=== PATIENT | male | born 1955 | race Caucasian/White ===

== ENCOUNTER 2025-03-14 14:24 | Inpatient (IN) | payer OTHER, MEDICAID, MEDICARE, SELFPAY ==
[2025-03-14] VITALS (13 sets, daily range): BP systolic 100–119; BP diastolic 61–81; PULSE 83–106; RESP 17–31; TEMP 36.3–37; O2SAT 87–99; BMI 30.2; BMI 33.7
--- NOTE | 2025-03-14 14:51 | XR_ITS ---
Examination: PA lateral chest 2 views TECHNIQUE: Upright PA lateral chest 2 views Date and time: March 14, 2025 1522 hours Comparison October 13, 2020 FINDINGS: Mild to moderate CHF Mild enlargement cardiac contour Prominent vascular congestion with perihilar basilar septal edema Consider superimposed pneumonia left base IMPRESSION: Mild to moderate CHF Consider superimposed pneumonia left base
--- NOTE | 2025-03-14 14:51 | EKG_ITS ---
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
--- NOTE | 2025-03-14 14:51 | PD.EDRME ---
Rapid Medical Screening Exam RME Arrival date/time: 03/14/25 14:24 69-year-old male with history of hyperlipidemia presents to the emergency room with a chief complaint of shortness of breath, difficulty breathing, lower extremity swelling x 2 days I have greeted and performed a focused initial assessment of this patient. A comprehensive ED assessment and evaluation of the patient, analysis of all test results, and completion of the medical decision making process will be conducted by additional ED providers. Chief Complaint: Shortness of Breath/Dyspnea Time Seen by Provider: 03/14/25 14:40 Vital signs: Vital Signs Temperature 98.5 F 03/14/25 14:42 Pulse Rate 98 03/14/25 14:42 Respiratory Rate 28 H 03/14/25 14:42 Blood Pressure 100/63 03/14/25 14:42 Pulse Oximetry (%) 90 L 03/14/25 14:42 Oxygen Delivery Method Room Air 03/14/25 14:42 Vital signs reviewed by provider: Yes
[2025-03-14] MEDS: DEXAMETHASONE SOD PHOS INJ 10 MG/ML VIAL PO (14:56)
[2025-03-14] MEDS: ALBUTEROL/IPRATROPIUM (Duoneb) RT SOL 3 ML NEBU INH (15:07)
[2025-03-14 15:23] LABS: Basophils # (Auto) 0.1 Thou/mm3 (0.0-0.2); Basophils % (Auto) 1 % (0-2.5); Eosinophils # (Auto) 0.1 Thou/mm3 (0.0-0.5); Eosinophils % (Auto) 1 % (0-10); Hematocrit 30.7 % (41.0-53.0); Hemoglobin 9.7 g/dL (13.5-16.0); Immature Granulocytes % (Auto) 1 % (0-0); Immature Granulocytes Auto 0.05 Thou/mm3 (0.00-0.00); Lymphocytes # (Auto) 1.7 Thou/mm3 (1.0-4.8); Lymphocytes % (Auto) 21 % (10-50); Mean Corpuscular HGB Conc 31.6 g/dl (31.0-37.0); Mean Corpuscular Hemoglobin 25.5 pg (25.0-35.0); Mean Corpuscular Volume 81 fL (80-100); Monocytes # (Auto) 0.7 Thou/mm3 (0.0-0.8); Monocytes % (Auto) 8 % (0-12); Neutrophils # (Auto) 5.6 Thou/mm3 (1.8-7.7); Neutrophils % (Auto) 69 % (37-80); Nucleated Red Blood Cell % 0 /100 WBC (0); Platelet Count 164 Thou/mm3 (140-440); RDW Standard Deviation 50.1 fL (35.1-43.9); White Blood Count 8.1 Thou/mm3 (3.8-10.6)
[2025-03-14 15:36] LABS: B-Type Natriuretic Peptide 417 pg/mL (0-100)
[2025-03-14 15:42] LABS: Alanine Aminotransferase 24 U/L (10-49); Albumin, Serum 4.4 gm/dL (3.4-4.8); Albumin/Globulin Ratio 1.9 (1.2-2.2); Alkaline Phosphatase 86 U/L (46-116); Anion Gap 11 (7-16); Aspartate Amino Transferase 26 U/L (0-34); BUN/Creatinine Ratio 15 Ratio (12-20); Bilirubin,Total 2.2 mg/dL (0.3-1.2); Blood Urea Nitrogen 16 mg/dL (9-23); Calcium 8.8 mg/dL (8.3-10.6); Calcium (Corrected) 8.8 mg/dL (8.5-10.1); Carbon Dioxide 20.9 mMol/L (20.0-31.0); Chloride 107 mMol/L (98-107); Creatinine (Component) 1.1 mg/dL (0.6-1.3); Estimated Creatinine Clearance 80.1 mL/min (>60); Globulin 2.3 gm/dL (2.3-3.5); Glucose 155 mg/dL (74-106); Osmolality,Calculated 281 (275-295); Sodium 139 mMol/L (136-145); Total Protein 6.7 gm/dL (5.7-8.2); eGFR > 60 See Note
[2025-03-14 15:46] LABS: Troponin I 6.889 ng/mL (0.0-0.045)
[2025-03-14 15:56] LABS: Collection Type, Urine Clean Catch
[2025-03-14 16:12] LABS: Bilirubin,Urine Negative (Negative); Blood,Urine Negative (Negative); Clarity,Urine Clear (Clear/Hazy); Color,Urine Lt-Yellow (Lt Yel-Yel); Glucose, Urine 4+ (Negative); Ketones,Urine Negative (Negative); Leukocyte Esterase,Urine Negative (Negative); Nitrite,Urine Negative (Negative); Protein,Urine Negative (Neg - Trace); RBC,Urine 3 /hpf (0-3); Specific Gravity,Urine 1.025 (1.001-1.035); Squamous Epithelial Cell,Urine < 1 /hpf (0-5); WBC,Urine 1 /hpf (0-5)
--- NOTE | 2025-03-14 16:20 | XR_ITS ---
Examination: CTA chest with intravenous contrast 2-D reconstructions 3-D reconstructions, vascular Date and time of exam: March 14, 2025 1856 hours INDICATIONS: Chest pain and shortness of breath beginning 2 days ago CTDI: vol (mGy) 27.5 DLP: (mGycm) 531 Technique: Multiple axial sections of the thorax have been obtained. 3 mm slice thickness, from below the hemidiaphragms to above the apices of the lungs. Mediastinal and lung density settings have been obtained. 2-D sagittal and coronal reconstructions. 3-D angiographic renderings, 3-D volume renderings, 3D post processing, vascular maximum intensity projections obtained. Contrast administered is 100 cc Isovue 370. Intravenous Low dose protocols were performed. One or more of the following dose reduction techniques were used; automated exposure control, adjustment of the mA and/or KV according to patient size, use of iterative reconstruction technique. Findings: No thoracic aortic aneurysm and dilatation Pulmonary artery segments are not enlarged No pulmonary artery filling defects Mild/moderate enlargement cardiac contour Prominent vascular congestion Perihilar basilar edema with moderate to large right pleural effusion and a moderate left pleural effusion Liver is irregular in contour, no focal liver lesions 2 mm gallstone No pancreatic or adrenal mass No hydronephrosis IMPRESSION: Negative for pulmonary artery emboli [id number] CHF, moderate to large right pleural effusion, moderate left pleural effusion Suspect primary hepatocellular disease Cholelithiasis
--- NOTE | 2025-03-14 16:20 | PD.EDADULT ---
ED General RME/HPI General Chief complaint: Shortness of Breath/Dyspnea Stated complaint: SOB X3 DAYS Time Seen by Provider: 03/14/25 14:40 Arrival date/time: 03/14/25 14:24 RME / HPI RME / HPI narrative: 03/14/25 14:24 69-year-old male with history of hyperlipidemia presents to the emergency room with a chief complaint of shortness of breath, difficulty breathing, lower extremity swelling x 2 days I have greeted and performed a focused initial assessment of this patient. A comprehensive ED assessment and evaluation of the patient, analysis of all test results, and completion of the medical decision making process will be conducted by additional ED providers. DR. REGAN MAIN ED EVALUATION: 69 year old male presents to the Emergency Department accompanied by his with complaints of shortness of breath and bilateral leg swelling onset 3 days. Patient denies any chest pain. Denies taking water pills. PMHx: CAD, SC in 2000, x5 cardiac stents, hypercholesterolemia, and GERD. Takes a baby ASA daily. Social Hx: Former smoker. No alcohol or substance use. 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 Related Data Home Medications ?Medication ?Instructions ?Recorded ?Confirmed atorvastatin 80 mg tablet 80 mg PO QPM 10/13/20 10/13/20 omeprazole 20 mg tablet,delayed 20 mg PO QDAY 10/13/20 10/13/20 release Allergies Allergy/AdvReac Type Severity Reaction Status Date / Time cephalexin (From Keflex) Allergy Verified 03/14/25 14:28 Review of Systems Review of Systems Systems Reviewed: All systems reviewed, normal except as documented Narrative Review of Systems: GEN: No fever, no chills, no weight loss EYES: No discharge, no visual changes, no pain HEENT: No ear pain, no congestion, no sore throat PULM: + shortness of breath, no cough, no congestion CV: No chest pain, no dyspnea on exertion, no palpitations GI: No nausea, no vomiting, no diarrhea, no pain, no constipation : No frequency, no urgency and no dysuria MUSC/SKEL: + bilateral leg swelling, no back pain SKIN: No rash PSYCH: No hallucinations, no depression HEME/LYMPH: No easy bleeding or bruising tendencies NEURO: No weakness, no headache Past Medical History Past Medical History CARDIAC: Positive Hypercholesterolemia GASTROINTESTINAL: Positive Gastroesophageal Reflux Disease Social History SMOKING STATUS: Former smoker SUBSTANCE USE: does not use ALCOHOL: Never ED Exam Narrative Physical exam: GENERAL APPEARANCE: alert and oriented x 4, well-developed, well-nourished VITALS: All vitals were reviewed and the pulse ox is 87% on room air, which is hypoxic according to my interpretation. HEENT: Normocephalic, atraumatic; pupils equal, round, reactive to light; EOMI; mucous membranes pink, moist; oropharynx clear NECK: Supple LUNGS: CTABL; no wheezes, no rales, no rhonchi HEART: Regular rate, regular rhythm; normal S1, S2; no murmurs ABDOMEN: non distended; normal BS; soft, no tenderness, no guarding, no rebound; no masses, no organomegaly, no hernia BACK: no CVA tenderness EXTREMITIES: atraumatic; there is 1+ pitting edema of the right lower extremity and trace on the left lower extremity NEUROLOGIC: awake; alert and oriented x4; cranial nerves II-XII grossly intact; no focal sensory or motor deficits PSYCHIATRIC: appropriate mood and affect SKIN: warm, dry, normal color; no rashes Course Quality Measures none Orders Category Date Time Status CT Screening NOW Care 03/14/25 16:20 Active EKG (ED ONLY) *Do not use* NOW Care 03/14/25 14:[address] angio chest Stat Exams 03/14/25 16:20 Ordered EKG (ED Only) Stat Exams 03/14/25 14:51 Draft XR chest 2V Stat Exams 03/14/25 14:51 Completed B-Type Natriuretic Peptide Stat Lab 03/14/25 15:06 Completed CBC Stat Lab 03/14/25 15:06 Completed Comprehensive Metabolic Panel Stat Lab 03/14/25 15:06 Completed Magnesium Stat Lab 03/14/25 15:06 Completed Troponin I Stat Lab 03/14/25 15:06 Completed Urinalysis Stat Lab 03/14/25 15:45 Completed Albuterol/Ipratr Rt Joanna [Duoneb Rt Joanna] Med 03/14/25 14:51 Discontinued 3 ml INH X1 ONE Aspirin Chew Med 03/14/25 17:53 Discontinued 162 mg PO X1 ONE Dexamethasone Inj [Decadron Inj] Med 03/14/25 14:51 Discontinued 10 mg PO X1 ONE Vital Signs Vital signs: Vital Signs Temperature 98.5 F 03/14/25 14:42 Pulse Rate 98 03/14/25 14:42 Respiratory Rate 28 H 03/14/25 14:42 Blood Pressure 100/63 03/14/25 14:42 Pulse Oximetry (%) 90 L 03/14/25 14:42 Oxygen Delivery Method Room Air 03/14/25 14:42 Discharge Plan Prescriptions/Referrals Prescriptions/Med Rec: No Action atorvastatin 80 mg Tablet 80 mg PO QPM omeprazole 20 mg Tablet,Delayed Release (Dr/Ec) 20 mg PO QDAY Referrals: Duy Olson [Primary Care Provider] - In 1 week Patient/Caregiver Discharge Instructions Print Language: Yi MDM Narrative MDM hospital course: I, Savana Raymond am scribing for and in the presence of Dr. Regan. Clinical Information Provided by patient and spouse Medical Records Reviewed [facility] Meds/Rx Considered, not Ordered None Labs/Rad/Tests considered, not Ordered None Chronic Illness/Social Conditions Add or document further as needed: PMHx: CAD, SC in 2000, x5 cardiac stents, hypercholesterolemia, and GERD. Takes a baby ASA daily. Social Hx: Former smoker. EKG Interpretation EKG #1: Date/time of EK03/14/25 1453 hours EKG interpretation: sinus rhythm, rate 84, Q waves in V1, V2; mild ST depressions in leads 2, 3, AVF, V5 and V6 Lab Interpretation Labs: interpreted by ct Lab(s) interpretation(s): Troponin 6.889 Imaging Radiology reports / interpretation(s): Procedure(s): XR chest 2V Accession Number(s): [id number] cc: Emmanuel Epperson; Pardeep Barlow MD~ Examination: PA lateral chest 2 views TECHNIQUE: Upright PA lateral chest 2 views Date and time: March 14, 2025 1522 hours Comparison October 13, 2020 FINDINGS: Mild to moderate CHF Mild enlargement cardiac contour Prominent vascular congestion with perihilar basilar septal edema Consider superimposed pneumonia left base IMPRESSION: Mild to moderate CHF Consider superimposed pneumonia left base Dictated By: Pardeep Barlow MD Medication Administration(s) Medication Administration History Discontinued Medications Albuterol/Ipratropium (Albuterol/Ipratropium (Duoneb) Rt Joanna 3 Ml Nebu) 3 ml INH X1 ONE Stop: 03/14/25 14:52 Last Admin: 03/14/25 15:07 Dose: 3 ml Documented By: [facility] [place] Aspirin (Aspirin 81 Mg Chew) 162 mg PO X1 ONE Stop: 03/14/25 17:54 Dexamethasone Sodium Phosphate (Dexamethasone Sod Phos Inj 10 Mg/Ml Vial) 10 mg PO X1 ONE Stop: 03/14/25 14:52 Last Admin: 03/14/25 14:56 Dose: 10 mg Documented By: KF Diagnosis Differential diagnosis: CHF, CAD, PE Most likely dx, and/or detailed dx discussion: No official diagnoses at this time, still pending diagnostic tests. Patient signout to the shift lab technician provider. Dispositon Disposition: other (Patient was signed out to Dr. Miller.) Disposition comments: 1800: Patient was signed out to Dr. Miller. Past medical, surgical, social and family history reviewed. Vitals and home medications reviewed. Results and treatment plan discussed. They will assume the care of the patient at this time and will follow the patient, pending chest CT and final disposition.
--- NOTE | 2025-03-14 18:39 | EDNOTE_ITS ---
Emergency Room Addendum <Wendy Lopez - Last Filed: 03/14/25 21:19> Addendum Narrative: I took over the care from previous shift physician at 6 PM on 03/14/2025.? See previous notes for complete H & P and ED course.?? I reviewed all diagnostic test results. My interpretation of the EKG is? My interpretation of the chest x-ray is Mild to moderate CHF. Consider superimposed pneumonia left base. My review of the CTA report is?Negative for pulmonary artery emboli. [id number] CHF, moderate to large right pleural effusion, moderate left pleural effusion. Suspect primary hepatocellular disease. Cholelithiasis. Blood tests and urine tests? Diagnoses include: Treatment here included?Aspirin, Decadron, Metoprolol, Heparin, Albuterol/Ipratroprium Duoneb 21:14 I discussed the case with our Performance Test Consultant, Dr. Cortes, about the presentation and exam and diagnostics and treatments here.? Will consult with hospitalist for admission. 21:18 I discussed the case with our hospitalist, Dr. Holliday, about the presentation and exam and diagnostics and treatments here. And need of further care in the hospital. Will accept the patient. Dillon Miller MD <Dillon Miller MD - Last Filed: 03/14/25 21:46> Addendum Narrative: I took over the care from previous shift physician at 6 PM on 03/14/2025.? See previous notes for complete H & P and ED course.?? I reviewed all diagnostic test results. My interpretation of the EKG is sinus rhythm with no acute ST?T changes. My interpretation of the chest x-ray is infiltrates. My review of the CTA report is?CHF. Blood tests and urine tests?remarkable for troponin 6.889 then 6.104. Diagnoses include: NSTEMI and CHF. Treatment here from me included metoprolol 12.5 mg and heparin bolus and drip. 21:14 I discussed the case with our Performance Test Consultant, Dr. Cortes, about the presentation and exam and diagnostics and treatments here.? Recommended admission. Will consult with hospitalist for admission. 21:18 I discussed the case with our hospitalist, Dr. Holliday, about the presentation and exam and diagnostics and treatments here. And need of further care in the hospital. Will accept the patient. Dillon Miller MD
[2025-03-14] MEDS: ASPIRIN 81 MG CHEW 162 MG PO (19:21)
[2025-03-14 19:48] LABS: INR 1.1 (0.9-1.3); Partial Thromboplastin Time 26.8 Seconds (22.0-36.0); Prothrombin Time 11.8 Seconds (9.0-12.2)
[2025-03-14 19:57] LABS: Troponin I 6.104 ng/mL (0.0-0.045)
[2025-03-14] MEDS: HEPARIN SOD INJ 5000 UNIT/ML VIAL 4000 UNIT IV (20:51)
[2025-03-14] MEDS: Heparin/D5w 25K 250 ML Ivpb 25,000 UNIT/250 ML BAG 14.315 UNIT IV (20:51)
[2025-03-14] MEDS: METOPROLOL TARTRATE 25 MG TABLET 12.5 MG PO (21:04)
--- NOTE | 2025-03-14 22:08 | ECHO_ITS ---
Transthoracic Echo Report Ht (in): 74 Wt (lb): 263 Exam Location: Echo Lab Status: Emergency Vascular Physician: Marga Gould Indications: Procedure Performed: BP: 129 / 97 HR: 94 Technical Quality: Technically difficult study MEASUREMENTS (Male / Female) Normal Values 2D ECHO LV Diastolic Diameter PLAX 5.8 cm 4.2 - 5.9 / 3.9 - 5.3 cm LV Systolic Diameter PLAX 4.6 cm IVS Diastolic Thickness 1.1 cm 0.6 - 1.0 / 0.6 - 0.9 cm LVPW Diastolic Thickness 1.0 cm 0.6 - 1.0 / 0.6 - 0.9 cm LV Relative Wall Thickness 0.4 LVOT Diameter 2.2 cm LV Ejection Fraction MOD 2C 36.1 % LV Cardiac Index MOD 2C 1916.7 cm?/min?m? LV Ejection Fraction 2C AL 39.5 % LV Cardiac Index 2C AL 2227.0 cm?/min?m? LA Volume Index 42.1 cm?/m? 16 - 28 cm?/m? M-MODE Aortic Root Diameter MM 3.2 cm LA Systolic Diameter MM 4.9 cm LA Ao Ratio MM 1.5 AV Cusp Separation MM 2.2 cm DOPPLER AV Peak Velocity 106.0 cm/s AV Peak Gradient 4.5 mmHg AV Mean Gradient 3.0 mmHg AV Velocity Time Integral 21.2 cm LVOT Peak Velocity 81.3 cm/s LVOT Peak Gradient 2.6 mmHg LVOT Velocity Time Integral 15.7 cm LVOT Cardiac Index 2216.9 cm?/min?m? AV Area Cont Eq vti 2.8 cm? AV Area Cont Eq pk 2.9 cm? MV Area PHT 4.8 cm? MR Peak Velocity 424.5 cm/s MR Peak Gradient 72.1 mmHg Mitral E Point Velocity 103.0 cm/s Mitral A Point Velocity 47.5 cm/s Mitral E to A Ratio 2.2 LV E' Lateral Velocity 7.6 cm/s Mitral E to LV E' Lateral Ratio 13.5 LV E' Septal Velocity 6.6 cm/s Mitral E to LV E' Septal Ratio 15.5 TR Peak Velocity 354.5 cm/s TR Peak Gradient 50.3 mmHg PV Peak Velocity 93.7 cm/s PV Peak Gradient 3.5 mmHg FINDINGS Left Ventricle Left ventricle is mildly dilated measuring 5.8 cm with anteroapical akinesis septal hypokinesis moderate global hypokinesis with left ventricle ejection fraction 30 to 35%. With grade 1 diastolic dysfunction. There is a suggestion of possible haziness at the apex but unclear whether this is an apical thrombus but is quite small. Right Ventricle The right ventricle is normal in size and systolic function. The estimated right ventricular systolic pressure, 67 mmHg. RAP 10. Left Atrium Moderately increased left atrial volume 42.1 mL/m?. Right Atrium The right atrium is normal by two-dimensional imaging, color flow and Doppler imaging with no structural abnormalities, no thrombus formation present. Atrial Septum The interatrial septum appears normal with no evidence of a shunt. Aorta The aorta is normal by two-dimensional, color flow and Doppler interrogation. Mitral Valve Mild to moderate mitral regurgitation Aortic Valve The aortic valve is trileaflet and normal by two-dimensional, color flow and Doppler interrogation. There is no significant aortic valve regurgitation. Tricuspid Valve The tricuspid valve is normal by two-dimensional, color flow and Doppler interrogation. There is mild to moderate tricuspid valve regurgitation. Pulmonic Valve The pulmonic valve is not well visualized. There is no significant pulmonic valve regurgitation. Vessels The pulmonary artery appears normal. The inferior vena cava pulmonary and hepatic veins appear normal. Pericardium The pericardium is normal by two-dimensional imaging. There is no significant pericardial effusion. CONCLUSIONS Indication: elevated troponin Mildly dilated left ventricular with ischemic cardiomyopathy anteroseptal apical akinesis with moderate to severe global hypokinesis left ventricular ejection fraction 30 to 35% RV is normal in size and systolic function. The estimated RVSP, 67 mmHg. RAP 10. Moderately increased LA volume 42.1 mL/m?. Mitral valve thickening with evidence of mild to moderate mitral regurgitation. Mild to moderate tricuspid regurgitation with moderate pulmonary hypertension. Maribel#[id number] Esme Hall (Electronically Signed) Final Date: 15 Mar 2025 19:31
--- NOTE | 2025-03-14 22:21 | PD.RESHP ---
Documentation for date of: 03/14/25 [facility] History of Present Illness History of present illness: 69-year-old male Past Medical History of Hypertension, hyperlipidemia, prediabes presented to the Emergency Department with complaints of shortness of breath and a pressure-like sensation in the chest that developed after returning from an evening walk. He denied acute chest pain, radiation, palpitations, nausea, vomiting, or other associated symptoms. He reported increasing orthopnea, requiring at least two pillows at night to sleep comfortably. Over the past two days, he also noted lower extremity swelling. Emergency Department Evaluation: Vital Signs: Hemodynamically stable EKG: ST depression in leads II, III, and aVF Troponin: Elevated at 6.8 ng/mL BNP: 417 pg/mL Chest X-ray: Mild to moderate congestive heart failure findings CTA Chest:Negative for pulmonary embolism or aortic aneurysm/dissection.Positive for perihilar and basilar pulmonary edema.Moderate to large right pleural effusion.Moderate left pleural effusion Patient was admitted for Acute Coronary Syndrome (ACS) ? NSTEMI Type I. Acute hypoxic respiratory failure, likely secondary to CHF and bilateral pleural effusions. Past medical history coronary artery disease status post stent placement, hypertension, prediabetes Past surgical history none Medication, per patient he takes only aspirin, the rest of the medication is unknown, will bring the list. Social history, patient lives with the , quit smoking 14 years ago, denies alcohol use Family history unremarkable Review of Systems Review of Systems Systems Reviewed: All systems reviewed, normal except as documented Exam Vital Signs Temp Pulse Resp BP Pulse Ox O2 Del Method O2 Flow Rate 98.1 F 106 H 17 104/67 96 Room Air 3 03/14/25 20:03 03/14/25 21:04 03/14/25 20:03 03/14/25 21:04 03/14/25 20:03 03/14/25 20:03 03/14/25 19:32 Narrative Exam GENERAL: no acute distress, AAO x3, well nourished. HEENT: Head AT/ NC. Mucous membranes moist. PERRL. NECK: Supple, no lymphadenopathy, no carotid bruits. CARDIOVASCULAR: RRR. Normal S1/S2, No m/r/g. 1+ pitting edema of bilateral LEs. RESPIRATORY: CTAB. No wheezing, rhonchi, crackles. GASTROINTESTINAL: Abdomen soft, non tender no palpable masses. Bowel sounds present in all 4 quadrants. MUSCULOSKELETAL:? No cyanosis or edema, no visible joint swelling. NEUROLOGICAL: CN II-XII grossly intact. No focal deficits. Sensation intact, symmetric. PSYCHIATRIC: Awake and alert, not agitated, normal mood and affect. INTEGUMENTARY: No obvious rashes, no jaundice, normal turgor. Results: Labs 03/14/25 15:06 03/14/25 15:06 Labs: Short CBC 03/14/25 Range/Units 15:06 WBC 8.1 (3.8-10.6) Thou/mm3 Hgb 9.7 L (13.5-16.0) g/dL Hct 30.7 L (41.0-53.0) % Plt Count 164 (140-440) Thou/mm3 BMP 03/14/25 15:06 Sodium 139 Potassium 4.0 Chloride 107 Carbon Dioxide 20.9 BUN 16 Creatinine 1.1 Glucose 155 H Calcium 8.8 Cardiac Enzymes 03/14/25 03/14/25 Range/Units 15:06 19:20 Troponin I 6.889 H* 6.104 H* D (0.0-0.045) ng/mL Liver Function 03/14/25 Range/Units 15:06 Total Bilirubin 2.2 H (0.3-1.2) mg/dL AST 26 (0-34) U/L ALT 24 (10-49) U/L Alkaline Phosphatase 86 (46-116) U/L Albumin 4.4 (3.4-4.8) gm/dL Urine 03/14/25 Range/Units 15:45 Urine Color Lt-Yellow (Lt Yel-Yel) Urine Clarity Clear (Clear/Hazy) Urine pH 6.0 (5.0-7.0) Ur Specific [place] 1.025 (1.001-1.035) Urine Protein Negative (Neg - Trace) Urine Glucose (UA) 4+ A (Negative) Quality Measures Quality Measures none Advance care planning discussed with:: patient Medications Home Medications and Allergies Home Medications ?Medication ?Instructions ?Recorded ?Confirmed ?Type atorvastatin 80 mg tablet 80 mg PO QPM 10/13/20 10/13/20 History omeprazole 20 mg tablet,delayed 20 mg PO QDAY 10/13/20 10/13/20 History release Allergies Allergy/AdvReac Type Severity Reaction Status Date / Time cephalexin (From Keflex) Allergy Verified 03/14/25 14:28 Visit Medications Acetaminophen (Acetaminophen 325 Mg Tablet) 650 mg PO Q6H PRN PRN Reason: PAIN OR FEVER > 101 Stop: 04/13/25 22:07 Aspirin (Aspirin Ec 81 Mg Tabec) 81 mg PO QDAY [facility] Stop: 04/14/25 08:59 Atorvastatin Calcium (Atorvastatin Calcium 20 Mg Tablet) 80 mg PO HS [facility] Stop: 04/14/25 20:59 Heparin Sodium/Dextrose (Heparin In D5w Ivpb) 25,000 unit in 250 mls @ 14.315 mls/hr IV .[id number] [facility]; Protocol Stop: 03/28/25 18:59 Last Admin: 03/14/25 20:51 Dose: 12 units/kg/hr, 14.315 mls/hr Metoprolol Tartrate (Metoprolol Tartrate 25 Mg Tablet) 12.5 mg PO BID [facility] Stop: 04/14/25 08:59 Ondansetron HCl (Ondansetron Inj 2 Mg/Ml Inj 2 Ml) 4 mg IVP Q6H PRN; Protocol PRN Reason: NAUSEA OR VOMITING Stop: 04/13/25 22:07 Pantoprazole Sodium (Pantoprazole 40 Mg Tablet) 40 mg PO QDAY [facility] Stop: 04/14/25 08:59 Discontinued Medications Albuterol/Ipratropium (Albuterol/Ipratropium (Duoneb) Rt Joanna 3 Ml Nebu) 3 ml INH X1 ONE Stop: 03/14/25 14:52 Last Admin: 03/14/25 15:07 Dose: 3 ml Aspirin (Aspirin 81 Mg Chew) 162 mg PO X1 ONE Stop: 03/14/25 17:54 Last Admin: 03/14/25 19:21 Dose: 162 mg Dexamethasone Sodium Phosphate (Dexamethasone Sod Phos Inj 10 Mg/Ml Vial) 10 mg PO X1 ONE Stop: 03/14/25 14:52 Last Admin: 03/14/25 14:56 Dose: 10 mg Heparin Sodium (Porcine) (Heparin Sod Inj 5000 Unit/Ml Vial) 4,000 unit IV X1 ONE Stop: 03/14/25 18:59 Last Admin: 03/14/25 20:51 Dose: 4,000 unit Metoprolol Tartrate (Metoprolol Tartrate 25 Mg Tablet) 12.5 mg PO X1 ONE Stop: 03/14/25 20:30 Last Admin: 03/14/25 21:04 Dose: 12.5 mg Assessment & Plan Plan 69-year-old male with past medical history of hypertension, hyperlipidemia, coronary artery disease status post stent placement was admitted for acute coronary syndrome/non-STEMI type I treatment and management. #ACS #NSETI type I Patient presented with chief complaints of shortness of breath, chest pressure EKG remarkable for ST depression in lead II and III, aVF Troponin was elevated at 6.8 In ED patient received aspirin, stopped heparin drip - Continue heparin drip ? Start aspirin 81 mg daily ? Start high intensity atorvastatin at bedtime ? Metoprolol 12.5 twice daily ? Lipid panel a.m. ? N.p.o. ? Cardiology is on board, will follow-up with recommendations ? Echo ordered, follow-up with results ? Control risk factors such as HTN, HLD, BS #Acute hypoxic respiratory failure secondary to NSTEMI versus pleural effusion Patient does not have any history of COPD, denies home oxygen use Presented with chief complaint of shortness of breath, Upon my evaluation patient was not 2 L nasal cannula saturating 92% CTA revealed perihilar vascular edema with moderate to large right pleural effusion and a moderate left pleural effusion ? Strict KENYA's ? Daily weight ? Fluid restriction 1500 ? Echo ? Follow-up with cardiology recommendations ? Currently patient is on heparin drip, we will defer Thoracentesis ? consider Lasix 40 daily #Hypertension #Hyperlipidemia per above Disposition:telebed DVT prophylaxis: heparin drip GI prophylaxis: PPI Diet: NPO Lines: PIV CODE STATUS:Full code Patient care was discussed with attending physician Dr. Miya Akhtar MD PGY-2 I have carefully reviewed this document. Due to imperfections in the voice software, there could be grammatical errors including phonetic/typographic errors. This in no way compromises the medical care the patient is receiving Attending Provider Attestation/Addendum I have examined the patient, reviewed labs and imaging findings, discussed the case with the resident(s), and reviewed entered orders. I agree with the plan of care as outlined in this note, with these additional summaries/recommendations: After examination of the patient and review of the clinical data, I feel that this patient needs admission to the hospital for further treatment and evaluation. Patient is a 69-year-old male with a medical history of CAD, myocardial infraction in 2000 and 2004, status post 5 cardiac stents, hyperlipidemia, and GERD who presents to [facility] emergency department on 03/14/2025 with chief complaints of chest pain, shortness of breath, and lower extremity swelling. # NSTEMI Most likely type I versus less likely type II Presented with typical features including chest pain and shortness of breath and significant CAD history this is concerning for NSTEMI type I from ACS or plaque rupture. CHERYL risk score 5 points indicating 26% risk at 14 days of all cause mortality. Soco score 155 points indicating 24% probability of from admission to 6 months. Troponin elevated to 6.889 and down trended to 6.104 EKG demonstrated sinus rhythm, rate 84, mild ST depressions in leads II, 3, aVF, V5, V6 Work-up: Telemetry, serial EKGs, TTE CAD risk factor screening with A1c, lipid panel, TSH Titrate O2 as needed for symptoms Antiplatelet: Status post loading dose aspirin, start aspirin 81 mg p.o. daily. Will defer Plavix for now. Anticoagulation: Start heparin gtt. (target APTT of 60-80 seconds) Plaque stabilization: Atorvastatin 80 mg p.o. at bedtime Cardiac remodeling prevention: Was given IV metoprolol in the ED. Start low-dose metoprolol twice daily. We will consider IV morphine if chest pain worsens and will defer nitroglycerin given soft blood pressure. N.p.o. for possible cardiac catheterization in a.m. #Acute Hypoxic respiratory failure #?CHF Exacerbation #Bilateral Pleural effusions Per patient no history of CHF but has not followed cardiology in many years.. Suspect patient may have developed ischemic cardiomyopathy. 02 sat 87% on RA. Typical symptoms of shortness of breath, lower extremity edema, & dyspnea with exertion BNP 417, chest x-ray shows moderate CHF changes Plan: Fluid restriction. Order echocardiogram. Cardiology consulted, recommendations appreciated. Follow-up echocardiogram and will institute goal-directed medical therapy as indicated. We will give IV Lasix 20 mg x 1 and consider continuing in a.m if no cardiac catheterization planned. Bilateral pleural effusions most likely secondary to CHF. # Hyperbilirubinemia Appears chronic dating back to 2022. No abdominal symptoms. Total bilirubin 2.2 on admission. CTA showed hepatocellular disease which is the most likely etiology. Plan: Avoid hepatotoxic agents. Follow-up outpatient. # Hyperlipidemia Lipid panel ordered Plan: Start high intensity statin. Please see residents note for additional details and management. Dr. Miya MD
[2025-03-14 22:56] LABS: Troponin I 5.852 ng/mL (0.0-0.045)
[2025-03-14] MEDS: FUROSEMIDE INJ 10 MG/ML VIAL 2 ML 20 MG IVP (23:53)
[2025-03-14] MEDS: ATORVASTATIN CALCIUM 20 MG TABLET 80 MG PO (23:54)
[2025-03-15] VITALS (15 sets, daily range): BP systolic 107–129; BP diastolic 61–97; PULSE 71–106; RESP 17–96; TEMP 36.2–36.5; O2SAT 94–100
[2025-03-15 03:21] LABS: Basophils % (Auto) 0 % (0-2.5); Eosinophils % (Auto) 0 % (0-10); Hematocrit 33.3 % (41.0-53.0); Hemoglobin 10.5 g/dL (13.5-16.0); Immature Granulocytes % (Auto) 1 % (0-0); Immature Granulocytes Auto 0.04 Thou/mm3 (0.00-0.00); Lymphocytes # (Auto) 0.7 Thou/mm3 (1.0-4.8); Lymphocytes % (Auto) 10 % (10-50); Mean Corpuscular HGB Conc 31.5 g/dl (31.0-37.0); Mean Corpuscular Hemoglobin 25.5 pg (25.0-35.0); Mean Corpuscular Volume 81 fL (80-100); Monocytes # (Auto) 0.3 Thou/mm3 (0.0-0.8); Monocytes % (Auto) 4 % (0-12); Neutrophils # (Auto) 6.3 Thou/mm3 (1.8-7.7); Neutrophils % (Auto) 86 % (37-80); Nucleated Red Blood Cell % 0 /100 WBC (0); Platelet Count 205 Thou/mm3 (140-440); RDW Standard Deviation 50.4 fL (35.1-43.9); Red Blood Count 4.12 Miln/mm3 (4.50-5.90); White Blood Count 7.4 Thou/mm3 (3.8-10.6)
[2025-03-15 03:31] LABS: Glucose Estimated Average 140 mg/dL (80-131); Hemoglobin A1C 6.5 % Hgb (4.8-6.0)
[2025-03-15 03:37] LABS: Partial Thromboplastin Time 46.2 Seconds (22.0-36.0)
[2025-03-15 04:09] LABS: Alanine Aminotransferase 25 U/L (10-49); Albumin/Globulin Ratio 1.9 (1.2-2.2); Alkaline Phosphatase 88 U/L (46-116); Anion Gap 12 (7-16); Aspartate Amino Transferase 27 U/L (0-34); BUN/Creatinine Ratio 13 Ratio (12-20); Bilirubin,Total 2.1 mg/dL (0.3-1.2); Blood Urea Nitrogen 15 mg/dL (9-23); Calcium 9.6 mg/dL (8.3-10.6); Calcium (Corrected) 9.6 mg/dL (8.5-10.1); Carbon Dioxide 20.1 mMol/L (20.0-31.0); Cardiac Risk Estimate 3.7 RATIO (4.0-6.7); Chloride 108 mMol/L (98-107); Cholesterol 119 mg/dL (132-200); Creatinine (Component) 1.2 mg/dL (0.6-1.3); Estimated Creatinine Clearance 77.5 mL/min (>60); Globulin 2.6 gm/dL (2.3-3.5); Glucose 145 mg/dL (74-106); HDL Cholesterol 32 mg/dL (40-60); LDL Cholesterol,Calculated 73 mg/dL (0-130); Magnesium 2.3 mg/dL (1.6-2.6); Osmolality,Calculated 283 (275-295); Phosphorous 2.4 mg/dL (2.4-5.1); Potassium 4.8 mMol/L (3.4-5.1); Sodium 140 mMol/L (136-145); Thyroid Stimulating Hormone 1.78 uIU/mL (0.55-4.78); Total Protein 7.6 gm/dL (5.7-8.2); Triglycerides 68 mg/dL (30-150); eGFR > 60 See Note
[2025-03-15 04:15] LABS: Troponin I 5.442 ng/mL (0.0-0.045)
[2025-03-15] MEDS: HEPARIN SOD INJ 5000 UNIT/ML VIAL 2000 UNIT IVP (04:47)
--- NOTE | 2025-03-15 04:53 | PC.NURSE ---
ptt drawn at 0300 did not result into 0440 spoke with from lab
[2025-03-15] MEDS: PANTOPRAZOLE 40 MG TABLET PO (09:09)
[2025-03-15] MEDS: METOPROLOL TARTRATE 25 MG TABLET 12.5 MG PO (09:09)
[2025-03-15] MEDS: ASPIRIN EC 81 MG TABEC PO (09:09)
[2025-03-15 10:46] LABS: Troponin I 4.907 ng/mL (0.0-0.045)
--- NOTE | 2025-03-15 11:39 | PC.CC ---
The patient is a 69 year old male who presents to the Emergency Department for chest pain. 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 Limits of confidentiality were discussed. Patient appears to be alert and oriented to self, location and situation. Patient was pleasant and engaged in initial assessment. Patient confirmed information on demographics. Patient states he is retired and lives at home with his and three grandchildren. Patient named his Ambika Chu ([phone]) as her surrogate decision maker. Patient reports his primary care provider is Dr. Olson and his pharmacy of preference is [facility] in [place]. Patient states he is able to ambulate independently, complete his own ADL's and denies any use of DME at home. Upon discharge patient plans to return home. 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
[2025-03-15 11:56] LABS: Partial Thromboplastin Time 75.4 Seconds (22.0-36.0)
[2025-03-15] MEDS: Heparin/D5w 25K 250 ML Ivpb 25,000 UNIT/250 ML BAG 16.701 UNIT IV (13:06)
--- NOTE | 2025-03-15 13:35 | ESCONSULT_ITS ---
<Statement entered by Bert Terry MD - 03/15/25 20:08> I personally examined this patient evaluated in detail appears to have known history of CAD multivessel stent placement nearly 20 years ago doing fairly well and recently has a progressive shortness of for last couple of months congestive heart failure symptoms as well as acute coronary syndrome chest pain troponin elevation and BNP elevation patient was recommended a right and left heart cardiac catheterization coronary angiogram once he stabilized continue IV Bumex aggressively diurese the patient with no effusion of patient moderate do not think large enough for radiology to do ultrasound-guided thoracentesis for now once he responds well if he can lay flat will do right and left heart cardiac catheterization tomorrow possibly Thursday depending on clinical response. HPI Data of Consult Requesting Physician: Payton Barroso DO Admitting Provider: Dalton Holliday MD Attending Provider: Payton Barroso DO Primary Care Provider: Duy Olson Consult Narrative Reason for consult: chest pain History of present illness: Patient is a 69 years old male with past medical history of CAD s/p PCI hypertension, hyperlipidemia, prediabes presented to the ED due to chest pain and shortness of breath after walking yesterday evening. He is pain free at this moment. He reports the pain is located in the middle of the chest and is pressure like pain. He denies any radiation of the pain or associated symptoms like diaphoresis nausea or vomiting. He reports chest pain lasted for 1 hour and resolved by its own when he started resting. He had similar chest pain and shortness of breath episode last week when he was working on his fence. He had 2 myocardial infarctions before and had multiple stents placed, last time in [place] and [place]. He is taking aspirin at home but does not take atorvastatin because he was told not to take it. He also reports that over the last several months he was not able to sleep because of shortness of breath and needed multiple pillows to sleep comfortably. His legs also got swollen recently. On admission blood pressure 100/63, pulse 98, respirations 28, temperature 98.5 ?F, oxygen saturation 90% on 4 L NC. Labs showed hemoglobin 10.5, chloride 108, glucose 145, hemoglobin A1c 6.5%, total bilirubin 2.1, BNP 417, Troponin I 6.889. EKG showed ST segment depressions in II, V5-V6. Chest CTA showed [id number] CHF, moderate to large right pleural effusion, moderate left pleural effusion. He was started on heparin drip and was admitted for further management. Cardiology was consulted due to NSTEMI. Patient was seen and examined at bedside. He reports his chest pain has resolved completely. He is on 4L NC saturating well in 90s and is not in distress. His troponin I remains downtrending, last reading 4.907. He is planned for cardiac cath tomorrow. Given loading dose of Brilinta. He was given Lasix 40 mg x1 IV due to orthopnea, echo is pending. cc:: cc: Payton Barroso DO Review of Systems Review of Systems Systems Reviewed: All systems reviewed, normal except as documented Exam Vital Signs Temp Pulse Resp BP Pulse Ox O2 Del Method O2 Flow Rate 97.7 F 94 20 129/97 H 97 Nasal Cannula 4 03/15/25 12:57 03/15/25 12:57 03/15/25 12:57 03/15/25 12:57 03/15/25 12:57 03/15/25 12:57 03/15/25 12:57 Narrative Exam Gen: Well-developed and well-nourished elderly male. HEENT: NCAT, PERRLA, EOMI, MMM, anicteric conjunctivae. CVS: normal S1 and S2. Regular tachycardia. No M/R/G. Resp: no BS B/L bases, mild crackles B/L. No rhonchi, rales or wheezing. Abd: soft, non-tender, non-distended. BS+ in all 4 quadrants. MSK: Good ROM in BUE & BLE. 2+ pitting edema BLE. Neuro: CN II-XII grossly intact. Strength 5/5 in BUE & BLE. Alert and oriented x3. Psych: appropriate mood and affect. Results Labs 03/15/25 03:12 03/15/25 03:12 Labs: Short CBC 03/14/25 03/15/25 Range/Units 15:06 03:12 WBC 8.1 7.4 (3.8-10.6) Thou/mm3 Hgb 9.7 L 10.5 L (13.5-16.0) g/dL Hct 30.7 L 33.3 L (41.0-53.0) % Plt Count 164 205 D (140-440) Thou/mm3 BMP 03/14/25 03/15/25 15:06 03:12 Sodium 139 140 Potassium 4.0 4.8 D Chloride 107 108 H Carbon Dioxide 20.9 20.1 BUN 16 15 Creatinine 1.1 1.2 Glucose 155 H 145 H Calcium 8.8 9.6 Cardiac Enzymes 03/14/25 03/14/25 03/14/25 Range/Units 15:06 19:20 22:25 Troponin I 6.889 H* 6.104 H* D 5.852 H* D (0.0-0.045) ng/mL 03/15/25 03/15/25 Range/Units 03:12 10:03 Troponin I 5.442 H* D 4.907 H* D (0.0-0.045) ng/mL Liver Function 03/14/25 03/15/25 Range/Units 15:06 03:12 Total Bilirubin 2.2 H 2.1 H (0.3-1.2) mg/dL AST 26 27 (0-34) U/L ALT 24 25 (10-49) U/L Alkaline Phosphatase 86 88 (46-116) U/L Albumin 4.4 5.0 H D (3.4-4.8) gm/dL Urine 03/14/25 Range/Units 15:45 Urine Color Lt-Yellow (Lt Yel-Yel) Urine Clarity Clear (Clear/Hazy) Urine pH 6.0 (5.0-7.0) Ur Specific [place] 1.025 (1.001-1.035) Urine Protein Negative (Neg - Trace) Urine Glucose (UA) 4+ A (Negative) Quality Measures Quality Measures VTE prophylaxis Advance care planning discussed with:: patient Medications Home Medications and Allergies Home Medications ?Medication ?Instructions ?Recorded ?Confirmed ?Type atorvastatin 80 mg tablet 80 mg PO QAM 10/13/20 History omeprazole 20 mg tablet,delayed 20 mg PO QDAY 10/13/20 03/15/25 History release albuterol sulfate 90 mcg/actuation 2 puff inhalation Q 6HR PRN 03/15/25 03/15/25 History aerosol inhaler shortness of breath or wheez ing aspirin 81 mg tablet,delayed 81 mg PO QDAY 03/15/25 History release calcium 500 mg (as 1 tab PO QDAY 03/15/2503/15 History carbonate)-vitamin D3 5 mcg (200 unit) tablet (Oyster Shell Calcium-Vitamin D3) empagliflozin 10 mg tablet 10 mg PO QDAY 03/15/2502/17 History (Jardiance) pregabalin 75 mg capsule 75 mg PO QDAY 03/15/2503/15 History valsartan 80 mg tablet 80 mg PO QDAY 03/15/2503/15 History Allergies Allergy/AdvReac Type Severity Reaction Status Date / Time cephalexin (From Keflex) Allergy Verified 03/14/25 14:28 Visit Medications Acetaminophen (Acetaminophen 325 Mg Tablet) 650 mg PO Q6H PRN PRN Reason: PAIN OR FEVER > 101 Stop: 04/13/25 22:07 Aspirin (Aspirin Ec 81 Mg Tabec) 81 mg PO QDAY [facility] Stop: 04/14/25 08:59 Last Admin: 03/15/25 09:09 Dose: 81 mg Atorvastatin Calcium (Atorvastatin Calcium 20 Mg Tablet) 80 mg PO HS [facility] Stop: 04/13/25 23:04 Last Admin: 03/14/25 23:54 Dose: 80 mg Heparin Sodium/Dextrose (Heparin In D5w Ivpb) 25,000 unit in 250 mls @ 14.315 mls/hr IV .[id number] [facility]; Protocol Stop: 03/28/25 18:59 Last Admin: 03/15/25 13:06 Dose: 14 units/kg/hr, 16.701 mls/hr Metoprolol Tartrate (Metoprolol Tartrate 25 Mg Tablet) 12.5 mg PO BID [facility] Stop: 04/14/25 08:59 Last Admin: 03/15/25 09:09 Dose: 12.5 mg Ondansetron HCl (Ondansetron Inj 2 Mg/Ml Inj 2 Ml) 4 mg IVP Q6H PRN; Protocol PRN Reason: NAUSEA OR VOMITING Stop: 04/13/25 22:07 Pantoprazole Sodium (Pantoprazole 40 Mg Tablet) 40 mg PO QDAY [facility] Stop: 04/14/25 08:59 Last Admin: 03/15/25 09:09 Dose: 40 mg Discontinued Medications Albuterol/Ipratropium (Albuterol/Ipratropium (Duoneb) Rt Joanna 3 Ml Nebu) 3 ml INH X1 ONE Stop: 03/14/25 14:52 Last Admin: 03/14/25 15:07 Dose: 3 ml Aspirin (Aspirin 81 Mg Chew) 162 mg PO X1 ONE Stop: 03/14/25 17:54 Last Admin: 03/14/25 19:21 Dose: 162 mg Atorvastatin Calcium (Atorvastatin Calcium 20 Mg Tablet) 80 mg PO HS [facility] Stop: 04/14/25 20:59 Dexamethasone Sodium Phosphate (Dexamethasone Sod Phos Inj 10 Mg/Ml Vial) 10 mg PO X1 ONE Stop: 03/14/25 14:52 Last Admin: 03/14/25 14:56 Dose: 10 mg Furosemide (Furosemide Inj 10 Mg/Ml Vial 2 Ml) 20 mg IVP X1 ONE Stop: 03/14/25 23:25 Last Admin: 03/14/25 23:53 Dose: 20 mg Heparin Sodium (Porcine) (Heparin Sod Inj 5000 Unit/Ml Vial) 4,000 unit IV X1 ONE Stop: 03/14/25 18:59 Last Admin: 03/14/25 20:51 Dose: 4,000 unit Heparin Sodium (Porcine) (Heparin Sod Inj 5000 Unit/Ml Vial) 2,000 unit IVP X1 ONE Stop: 03/15/25 04:43 Last Admin: 03/15/25 04:47 Dose: 2,000 unit Metoprolol Tartrate (Metoprolol Tartrate 25 Mg Tablet) 12.5 mg PO X1 ONE Stop: 03/14/25 20:30 Last Admin: 03/14/25 21:04 Dose: 12.5 mg Assessment & Plan Plan Patient is a 69 years old male with past medical history of CAD s/p PCI, hypertension, hyperlipidemia, prediabes presented to the ED due to chest pain and sortness of breath after walking yesterday evening, labs showed elevated troponin I and EKG showed ST segment depressions, he was admitted for further management and cardiology was consulted. #NSTEMI.Acute non-ST segment elevation myocardial infarction The patient came to the hospital with classic presentation of recent shortness of breath congestive heart failure with ACS NSTEMI symptoms also severe worsening of shortness of breath acutely decompensated congestive heart failure. Since the patient is significant troponin elevation we will go ahead and plan on doing coronary angiogram right and left heart cardiac catheterization possible later tomorrow afternoon or Thursday depending on the patient's ability to lay fla t. #CAD s/p PCI.Previous multivessel stent placement # HFrEF acute exacerbation with pleural effusions The patient has no history of CAD multivessel stent placement between 2000 and 2004 but not recent came to the hospital severe shortness of breath bilateral pleural effusions as well as clinical acute decompensated congestive heart failure BNP elevation and ST depression precordial leads possible ischemic cardiomyopathy echo showed ejection fraction 35% with anteroseptal apical akinesis possible recent myocardial infarction versus old anterolateral microinfarction. Patient will recommend a right and left heart cardiac catheterization coronary angiogram and possible PCI if indicated we will schedule patient for tomorrow afternoon probably Thursday if does not improve that well especially patient is quite orthopneic currently sitting upright. #Hx of hyperlipidemia. #Hx of prediabetes. - patient reported typical chest pain started after exertion. - Troponin I on admission 6.889, downtrending, last reading 4.907. BNP 417. - EKG showed ST segment depressions in II, V5-V6. - per chart review patient had coronary stent placement but no other info is available. Plan: - cardiac cath tomorrow if CHF is better compensated, NPO after midnight. - continue heparin drip. - continue aspirin and atorvastatin. - continue trending troponin I. - given loading dose of Brilinta. Start BID tomorrow. - nitroglycerin sublingual as needed. - keep monitoring electrolytes. - metoprolol tartrate changed to succinate 25 mg daily. - start ACEi/ARB when possible. #Concern for CHF. #Bilateral pleural effusions. - Reports worsening SOB and BLE swelling, orthopnea symptoms for the last several months. - Chest CTA showed [id number] CHF, moderate to large right pleural effusion, moderate left pleural effusion. Plan: - echo is pending. - Lasix 40 mg IV x1 and Bumex 2 mg IV x1. - strict I&O. Urinary catheter. - fluid restriction 1500cc/day. - low sodium diet. - daily weights. Hx of hypertension. - On admission BP 100/63 and remains soft. Plan: - resume valsartan when appropriate. Management of other problems as per primary team. Plan of care discussed with attending Dr. Terry. Marcus Morillo MD, PGY 2. Disclaimer: This note was dictated by speech recognition. Minor errors in neon tube bender may be present due to voice recognition software.
--- NOTE | 2025-03-15 14:19 | ESPR_ITS ---
<Statement entered by Dustin Perkins MD - 03/15/25 16:54> LPatient examined and case discussed with the team including attending physician. Note reviewed, I agree with the care plan as documented. Mr Chu is a 69-year-old male with past medical history of hypertension, hyperlipidemia, coronary artery disease status post stent placement was admitted for acute coronary syndrome/non-STEMI type I and acute shortness of breath. EKG remarkable for ST depression in lead II and III, aVF, Troponin was elevated at 6.8. CTA revealed perihilar vascular edema with moderate to large right pleural effusion and a moderate left pleural effusion. In the ED patient was loaded with ASA. Echo from 2019 showed: Ejection fraction 50-55%. Cardiology is on board, appreciate recommendations. Plan: Continue heparin drip, aspirin 81 mg daily, atorvastatin at bedtime, Metoprolol 12.5 twice daily. Strict KENYA's, daily weight, fluid restriction 1500cc. N.p.o. after midnight. Echo ordered, follow-up with results. Currently patient is on heparin drip, we will defer Thoracentesis for pleural effusion. Please refer to the note below for further details. - Dustin Perkins MD, PGY 2 Disclaimer: The document may contain phonetic/typographic errors due to voice recognition software. These errors are purely due to imperfections in the software program and should not be misconstrued in any way to compromise the substance of the patient's medical care during this visit. Documentation for date of: 03/15/25 Subjective Subjective Interval history: Patient seen today at the bedside found awake, alert, orientedx3. No overnight events reported. Vitals and labs reviewed. States no active chest pain or shortness of breath at this time. Was diuresed overnight, will hold on further diuresis today. Spoke to cardiology, Dr. Terry will take patient to [facility] tomorrow, n.p.o. after midnight placed. Exam Vital Signs Temp Pulse Resp BP Pulse Ox O2 Del Method O2 Flow Rate 97.7 F 94 20 129/97 H 97 Nasal Cannula 4 03/15/25 12:57 03/15/25 12:57 03/15/25 12:57 03/15/25 12:57 03/15/25 12:57 03/15/25 12:57 03/15/25 12:57 Narrative Exam Physical Exam GENERAL: NAD, AAOx3 HEENT: Moist mucosa. Eyes open, symmetrical, & clear CARDIO: Heart RRR, no obvious murmurs PULM: No noted coughing/dyspnea CTA B/L, no R/W/R GI: Abdomen soft, nondistended, no pain on palpation. BSx4 SKIN/MSK/EXT: trace bilateral lower extremity edema, no pain on palpation. Pedal pulses present B/L NEURO: AAOx3, no focal neuro deficits, able to move all 4 extremities Objective Labs 03/15/25 03:12 03/15/25 03:12 Labs: Laboratory Results - last 24 hr 03/14/25 03/14/25 03/14/25 15:06 15:45 19:20 WBC 8.1 RBC 3.80 L Hgb 9.7 L Hct 30.7 L MCV 81 MCH 25.5 MCHC 31.6 RDW Std Deviation 50.1 H Plt Count 164 Neut % (Auto) 69 Lymph % (Auto) 21 Russell % (Auto) 8 Eos % (Auto) 1 Baso % (Auto) 1 Neut # (Auto) 5.6 Lymph # (Auto) 1.7 Russell # (Auto) 0.7 Eos # (Auto) 0.1 Baso # (Auto) 0.1 Immature Gran # (Auto) 0.05 H Absolute Nucleated RBC 0.00 Immature Gran % 1 H Nucleated RBC % 0 PT 11.8 INR 1.1 APTT 26.8 Sodium 139 Potassium 4.0 Chloride 107 Carbon Dioxide 20.9 Anion Gap 11 BUN 16 Creatinine 1.1 Estim Creat Clear Calc 80.1 eGFR > 60 BUN/Creatinine Ratio [address] Glu mg/dL Hemoglobin A1c Calculated Osmolality 281 Calcium 8.8 Corrected Calcium 8.8 Phosphorus Magnesium 2.0 Total Bilirubin 2.2 H AST 26 ALT 24 Alkaline Phosphatase 86 Troponin I 6.889 H* 6.104 H* D B-Natriuretic Peptide 417 H Total Protein 6.7 Albumin 4.4 Globulin 2.3 Albumin/Globulin Ratio 1.9 Triglycerides Cholesterol LDL Cholesterol, Calc HDL Cholesterol Cholesterol/HDL Ratio TSH Ur Collection Type Clean Catch Urine Color Lt-Yellow Urine Clarity Clear Urine pH 6.0 Ur Specific Gowen 1.025 Urine Protein Negative Urine Glucose (UA) 4+ A Urine Ketones Negative Urine Blood Negative Urine Nitrite Negative Urine Bilirubin Negative Urine Urobilinogen (Auto) 3.0 Ur Leukocyte Esterase Negative Urine RBC 3 Urine WBC 1 Ur Squamous Epith Cells < 1 Urine Bacteria None 03/14/25 03/15/25 03/15/25 22:25 03:12 10:03 WBC 7.4 RBC 4.12 L Hgb 10.5 L Hct 33.3 L MCV 81 MCH 25.5 MCHC 31.5 RDW Std Deviation 50.4 H Plt Count 205 D Neut % (Auto) 86 H Lymph % (Auto) 10 Russell % (Auto) 4 Eos % (Auto) 0 Baso % (Auto) 0 Neut # (Auto) 6.3 Lymph # (Auto) 0.7 L Russell # (Auto) 0.3 Eos # (Auto) 0.0 Baso # (Auto) 0.0 Immature Gran # (Auto) 0.04 H Absolute Nucleated RBC 0.00 Immature Gran % 1 H Nucleated RBC % 0 PT INR APTT 46.2 H D Sodium 140 Potassium 4.8 D Chloride 108 H Carbon Dioxide 20.1 Anion Gap 12 BUN 15 Creatinine 1.2 Estim Creat Clear Calc 77.5 eGFR > 60 BUN/Creatinine Ratio [address]ucose [address] Glu mg/dL 140 H Hemoglobin A1c 6.5 H Calculated Osmolality 283 Calcium 9.6 Corrected Calcium 9.6 Phosphorus 2.4 Magnesium 2.3 Total Bilirubin 2.1 H AST 27 ALT 25 Alkaline Phosphatase 88 Troponin I 5.852 H* D 5.442 H* D 4.907 H* D B-Natriuretic Peptide Total Protein 7.6 Albumin 5.0 H D Globulin 2.6 Albumin/Globulin Ratio 1.9 Triglycerides 68 Cholesterol 119 L LDL Cholesterol, Calc 73 HDL Cholesterol 32 L Cholesterol/HDL Ratio 3.7 L TSH 1.78 Ur Collection Type Urine Color Urine Clarity Urine pH Ur Specific Gowen Urine Protein Urine Glucose (UA) Urine Ketones Urine Blood Urine Nitrite Urine Bilirubin Urine Urobilinogen (Auto) Ur Leukocyte Esterase Urine RBC Urine WBC Ur Squamous Epith Cells Urine Bacteria 03/15/25 10:50 WBC RBC Hgb Hct MCV MCH MCHC RDW Std Deviation Plt Count Neut % (Auto) Lymph % (Auto) Russell % (Auto) Eos % (Auto) Baso % (Auto) Neut # (Auto) Lymph # (Auto) Russell # (Auto) Eos # (Auto) Baso # (Auto) Immature Gran # (Auto) Absolute Nucleated RBC Immature Gran % Nucleated RBC % PT INR APTT 75.4 H D Sodium Potassium Chloride Carbon Dioxide Anion Gap BUN Creatinine Estim Creat Clear Calc eGFR BUN/Creatinine Ratio Glucose Estimated Ave Glu mg/dL Hemoglobin A1c Calculated Osmolality Calcium Corrected Calcium Phosphorus Magnesium Total Bilirubin AST ALT Alkaline Phosphatase Troponin I B-Natriuretic Peptide Total Protein Albumin Globulin Albumin/Globulin Ratio Triglycerides Cholesterol LDL Cholesterol, Calc HDL Cholesterol Cholesterol/HDL Ratio TSH Ur Collection Type Urine Color Urine Clarity Urine pH Ur Specific Gowen Urine Protein Urine Glucose (UA) Urine Ketones Urine Blood Urine Nitrite Urine Bilirubin Urine Urobilinogen (Auto) Ur Leukocyte Esterase Urine RBC Urine WBC Ur Squamous Epith Cells Urine Bacteria Quality Measures Quality Measures none Advance care planning discussed with:: patient Assessment & Plan Assessment Current Active Medications: Generic Name Dose Route Start Last Admin Trade Name Freq PRN Reason Stop Dose Admin Acetaminophen 650 mg 03/14/25 22:08 Acetaminophen 325 Mg Tablet PO 04/13/25 22:07 Q6H PRN PAIN OR FEVER > 101 Aspirin 81 mg 03/15/25 09:00 03/15/25 09:09 Aspirin Ec 81 Mg Tabec PO 04/14/25 08:59 81 mg QDAY MONTSE Administration Atorvastatin Calcium 80 mg 03/14/25 23:05 03/14/25 23:54 Atorvastatin Calcium 20 Mg Tablet PO 04/13/25 23:04 80 mg HS MONTSE Administration Heparin Sodium/Dextrose 25,000 unit in 250 mls @ 14.315 mls/hr 03/14/25 19:00 03/15/25 13:06 Heparin In D5w Ivpb IV 03/28/25 18:59 14 units/kg/hr .[id number] MONTSE 16.701 mls/hr Administration Protocol 12 UNITS/KG/HR Metoprolol Tartrate 12.5 mg 03/15/25 09:00 03/15/25 09:09 Metoprolol Tartrate 25 Mg Tablet PO 04/14/25 08:59 12.5 mg BID MONTSE Administration Ondansetron HCl 4 mg 03/14/25 22:08 Ondansetron Inj 2 Mg/Ml Inj 2 Ml IVP 04/13/25 22:07 Q6H PRN NAUSEA OR VOMITING Protocol Pantoprazole Sodium 40 mg 03/15/25 09:00 03/15/25 09:09 Pantoprazole 40 Mg Tablet PO 04/14/25 08:59 40 mg QDAY MONTSE Administration Plan 69-year-old male with past medical history of hypertension, hyperlipidemia, coronary artery disease status post stent placement was admitted for acute coronary syndrome/non-STEMI type I treatment and management. #Acute Coronary Syndrome #NSTEMI type I Patient presented with chief complaints of shortness of breath, chest pressure EKG remarkable for ST depression in lead II and III, aVF Troponin was elevated at 6.8 In the ED patient was loaded with ASA Lipid panel wnl last echo from 2019 showed: Normal left ventricular size and function. Approximate ejection fraction is 50-55%. Mild to moderate mitral and mild tricuspid regurgitation noted. ? pending cardiac cath tomorrow with Dr. Terry ? Continue heparin drip ? on aspirin 81 mg daily ? on high intensity atorvastatin at bedtime ? Metoprolol 12.5 twice daily ? N.p.o. after midnight ? Cardiology is on board, will follow-up with recommendations ? Echo ordered, follow-up with results ? Control risk factors such as HTN, HLD, BS #Acute hypoxic respiratory failure secondary to NSTEMI versus pleural effusion Patient does not have any history of COPD, denies home oxygen use Presented with chief complaint of shortness of breath, Upon my evaluation patient was not 2 L nasal cannula saturating 92% CTA revealed perihilar vascular edema with moderate to large right pleural effusion and a moderate left pleural effusion ? Strict KENYA's ? Daily weight ? Fluid restriction 1500 ? Echo ? Follow-up with cardiology recommendations ? Currently patient is on heparin drip, we will defer Thoracentesis ? consider Lasix 40 daily #Hypertension #Hyperlipidemia per above Disposition:telebed, pending cardiac cath DVT prophylaxis: heparin drip GI prophylaxis: PPI Diet: cardiac, NPO after midnight Lines: PIV CODE STATUS:Full code Case discussed with my senior Dr. Perkins and my attending Dr. Dharmesh Menendez MD PGY-1 Attending Provider Attestation/Addendum I, Payton Barroso, DO, attest that I was physically present for the nair portions of the service and evaluated the patient with the resident and I reviewed and discussed the case with the resident and agree with the resident's findings and plans of care as documented above Patient seen and evaluated this AM in ED. Patient states he is feeling much improved. Patient states chest pain and shortness of breath resolved. Patient has history of 7 stents in the past and takes aspirin at home. ST depressions noted on EKG. Troponin downtrending. Started on heparin drip. Plan for cardiac cath in AM as per cardiology. Will place NPO after midnight.
[2025-03-15] MEDS: FUROSEMIDE INJ 10 MG/ML 4ML VIAL 40 MG IVP (15:15)
[2025-03-15] MEDS: TICAGRELOR 90 MG TABLET 180 MG PO (15:15)
[2025-03-15 17:40] LABS: Partial Thromboplastin Time 50.6 Seconds (22.0-36.0)
[2025-03-15] MEDS: BUMETANIDE INJ 0.25 MG/ML VIAL 4 ML 2 MG IVP (20:04)
[2025-03-15] MEDS: ATORVASTATIN CALCIUM 20 MG TABLET 80 MG PO (20:05)
[2025-03-16] VITALS (20 sets, daily range): BP systolic 100–123; BP diastolic 56–78; PULSE 61–90; RESP 12–22; TEMP 36.1–36.9; O2SAT 90–100; BMI 33.7
[2025-03-16 00:23] LABS: Partial Thromboplastin Time 48.3 Seconds (22.0-36.0)
[2025-03-16] MEDS: HEPARIN SOD INJ 5000 UNIT/ML VIAL 2000 UNIT IV (00:51)
[2025-03-16] MEDS: Heparin/D5w 25K 250 ML Ivpb 25,000 UNIT/250 ML BAG 19.087 UNIT IV (04:09)
--- NOTE | 2025-03-16 07:30 | CHAP ---
Visited with patient about how he was feeling and prayed with him about his upcoming procedure.
[2025-03-16 07:37] LABS: Basophils # (Auto) 0.1 Thou/mm3 (0.0-0.2); Basophils % (Auto) 1 % (0-2.5); Eosinophils % (Auto) 0 % (0-10); Hematocrit 32.9 % (41.0-53.0); Hemoglobin 10.3 g/dL (13.5-16.0); Immature Granulocytes % (Auto) 1 % (0-0); Immature Granulocytes Auto 0.08 Thou/mm3 (0.00-0.00); Lymphocytes # (Auto) 1.9 Thou/mm3 (1.0-4.8); Lymphocytes % (Auto) 18 % (10-50); Mean Corpuscular HGB Conc 31.3 g/dl (31.0-37.0); Mean Corpuscular Hemoglobin 25.5 pg (25.0-35.0); Mean Corpuscular Volume 81 fL (80-100); Monocytes # (Auto) 0.9 Thou/mm3 (0.0-0.8); Monocytes % (Auto) 8 % (0-12); Neutrophils # (Auto) 7.7 Thou/mm3 (1.8-7.7); Neutrophils % (Auto) 72 % (37-80); Nucleated Red Blood Cell % 0 /100 WBC (0); Platelet Count 207 Thou/mm3 (140-440); RDW Standard Deviation 50.8 fL (35.1-43.9); Red Blood Count 4.04 Miln/mm3 (4.50-5.90); White Blood Count 10.6 Thou/mm3 (3.8-10.6)
[2025-03-16 08:10] LABS: Partial Thromboplastin Time 67.7 Seconds (22.0-36.0)
[2025-03-16 08:25] LABS: Alanine Aminotransferase 26 U/L (10-49); Albumin, Serum 4.4 gm/dL (3.4-4.8); Albumin/Globulin Ratio 1.8 (1.2-2.2); Alkaline Phosphatase 80 U/L (46-116); Anion Gap 13 (7-16); Aspartate Amino Transferase 26 U/L (0-34); BUN/Creatinine Ratio 22 Ratio (12-20); Bilirubin,Total 2.5 mg/dL (0.3-1.2); Blood Urea Nitrogen 24 mg/dL (9-23); Calcium 9.1 mg/dL (8.3-10.6); Calcium (Corrected) 9.1 mg/dL (8.5-10.1); Carbon Dioxide 23.3 mMol/L (20.0-31.0); Chloride 105 mMol/L (98-107); Creatinine (Component) 1.1 mg/dL (0.6-1.3); Estimated Creatinine Clearance 84.5 mL/min (>60); Globulin 2.5 gm/dL (2.3-3.5); Glucose 132 mg/dL (74-106); Magnesium 2.1 mg/dL (1.6-2.6); Osmolality,Calculated 287 (275-295); Potassium 3.6 mMol/L (3.4-5.1); Sodium 141 mMol/L (136-145); Total Protein 6.9 gm/dL (5.7-8.2); eGFR > 60 See Note
[2025-03-16 08:29] LABS: Troponin I 5.099 ng/mL (0.0-0.045)
[2025-03-16] MEDS: ASPIRIN EC 81 MG TABEC PO (08:32)
[2025-03-16] MEDS: PANTOPRAZOLE 40 MG TABLET PO (08:32)
[2025-03-16] MEDS: METOPROLOL SUCCINATE XL 25 MG TABCR PO (08:32)
[2025-03-16] MEDS: TICAGRELOR 90 MG TABLET PO ×2 (08:32→20:01)
[2025-03-16 08:37] LABS: INR 1.1 (0.9-1.3); Prothrombin Time 12.4 Seconds (9.0-12.2)
--- NOTE | 2025-03-16 13:44 | ESPR_ITS ---
<Statement entered by Dustin Perkins MD - 03/16/25 16:22> Patient examined and case discussed with the team including attending physician. Note reviewed, I agree with the care plan as documented. Mr Chu is a 69-year-old male with past medical history of hypertension, hyperlipidemia, coronary artery disease status post stent placement was admitted for acute coronary syndrome/non-STEMI type I and acute shortness of breath. EKG remarkable for ST depression in lead II and III, aVF, Troponin was elevated at 6.8. CTA revealed perihilar vascular edema with moderate to large right pleural effusion and a moderate left pleural effusion. In the ED patient was loaded with ASA. Echo from 2019 showed: Ejection fraction 50-55%. Cardiology is on board, appreciate recommendations. 03/16: s/p cardiac cath today. Findings: 99% LAD occlusion s/p stent in main LAD. Plan: Will follow up further Cardio recs. Continue heparin drip, aspirin 81 mg daily, atorvastatin at bedtime, Metoprolol 12.5 twice daily. Strict KENYA's, daily weight, fluid restriction 1500cc. Echo ordered, will defer Thoracentesis for now. Please refer to the note below for further details. - Dustin Perkins MD, PGY 2 Disclaimer: The document may contain phonetic/typographic errors due to voice recognition software. These errors are purely due to imperfections in the software program and should not be misconstrued in any way to compromise the substance of the patient's medical care during this visit. Documentation for date of: 03/16/25 Subjective Subjective Interval history: Patient seen today at the bedside found awake, alert, orientedx3. No overnight events reported. States no active complaints at this time. Vitals and labs reviewed. Patient scheduled for cardiac cath today, will follow-up. Exam Vital Signs Temp Pulse Resp BP Pulse Ox O2 Del Method O2 Flow Rate 98.1 F 78 16 108/56 L 100 Room Air 1 03/16/25 10:59 03/16/25 10:59 03/16/25 10:59 03/16/25 10:59 03/16/25 10:59 03/16/25 10:59 03/16/25 08:00 Narrative Exam Physical Exam GENERAL: NAD, AAOx3 HEENT: Moist mucosa. Eyes open, symmetrical, & clear CARDIO: Heart RRR, no obvious murmurs PULM: No noted coughing/dyspnea CTA B/L, no R/W/R GI: Abdomen soft, nondistended, no pain on palpation. BSx4 SKIN/MSK/EXT: trace bilateral lower extremity edema, no pain on palpation. Pedal pulses present B/L NEURO: AAOx3, no focal neuro deficits, able to move all 4 extremities Objective Labs 03/16/25 07:14 03/16/25 07:14 Labs: Laboratory Results - last 24 hr 03/15/25 03/15/25 03/16/25 16:47 23:20 07:14 WBC 10.6 D RBC 4.04 L Hgb 10.3 L Hct 32.9 L MCV 81 MCH 25.5 MCHC 31.3 RDW Std Deviation 50.8 H Plt Count 207 Neut % (Auto) 72 Lymph % (Auto) 18 Sharkey % (Auto) 8 Eos % (Auto) 0 Baso % (Auto) 1 Neut # (Auto) 7.7 Lymph # (Auto) 1.9 Sharkey # (Auto) 0.9 H Eos # (Auto) 0.0 Baso # (Auto) 0.1 Immature Gran # (Auto) 0.08 H Absolute Nucleated RBC 0.00 Immature Gran % 1 H Nucleated RBC % 0 PT 12.4 H INR 1.1 APTT 50.6 H D 48.3 H 67.7 H D Sodium 141 Potassium 3.6 D Chloride 105 Carbon Dioxide 23.3 Anion Gap 13 BUN 24 H Creatinine 1.1 Estim Creat Clear Calc 84.5 eGFR > 60 BUN/Creatinine Ratio 22 H Glucose 132 H Calculated Osmolality 287 Calcium 9.1 Corrected Calcium 9.1 Magnesium 2.1 Total Bilirubin 2.5 H AST 26 ALT 26 Alkaline Phosphatase 80 Troponin I 5.099 H* Total Protein 6.9 Albumin 4.4 D Globulin 2.5 Albumin/Globulin Ratio 1.8 Quality Measures Quality Measures VTE prophylaxis Advance care planning discussed with:: patient Assessment & Plan Assessment Current Active Medications: Generic Name Dose Route Start Last Admin Trade Name Freq PRN Reason Stop Dose Admin Acetaminophen 650 mg 03/14/25 22:08 Acetaminophen 325 Mg Tablet PO 04/13/25 22:07 Q6H PRN PAIN OR FEVER > 101 Aspirin 81 mg 03/15/25 09:00 03/16/25 08:32 Aspirin Ec 81 Mg Tabec PO 04/14/25 08:59 81 mg QDAY MONSTE Administration Atorvastatin Calcium 80 mg 03/14/25 23:05 03/15/25 20:05 Atorvastatin Calcium 20 Mg Tablet PO 04/13/25 23:04 80 mg HS MONTSE Administration Heparin Sodium/Dextrose 25,000 unit in 250 mls @ 14.315 mls/hr 03/14/25 19:00 03/16/25 10:04 Heparin In D5w Ivpb IV 03/28/25 18:59 0 units/kg/hr .[id number] MONTSE 0 mls/hr Titration Protocol 12 UNITS/KG/HR Metoprolol Succinate 25 mg 03/16/25 09:00 03/16/25 08:32 Metoprolol Succinate Xl 25 Mg Tabcr PO 04/15/25 08:59 25 mg QDAY MONTSE Administration Ondansetron HCl 4 mg 03/14/25 22:08 Ondansetron Inj 2 Mg/Ml Inj 2 Ml IVP 04/13/25 22:07 Q6H PRN NAUSEA OR VOMITING Protocol Pantoprazole Sodium 40 mg 03/15/25 09:00 03/16/25 08:32 Pantoprazole 40 Mg Tablet PO 04/14/25 08:59 40 mg QDAY MONTSE Administration Ticagrelor 90 mg 03/16/25 09:00 03/16/25 08:32 Ticagrelor 90 Mg Tablet PO 04/15/25 08:59 90 mg BID MONTSE Administration Plan 69-year-old male with past medical history of hypertension, hyperlipidemia, coronary artery disease status post stent placement was admitted for acute coronary syndrome/non-STEMI type I treatment and management. #Acute Coronary Syndrome #NSTEMI type I Patient presented with chief complaints of shortness of breath, chest pressure EKG remarkable for ST depression in lead II and III, aVF Troponin was elevated at 6.8 In the ED patient was loaded with ASA Lipid panel wnl Echo: Mildly dilated left ventricular with ischemic cardiomyopathy anteroseptal apical akinesis with moderate to severe global hypokinesis left ventricular ejection fraction 30 to 35%. RV is normal in size and systolic function. The estimated RVSP, 67 mmHg. RAP 10. Moderately increased LA volume 42.1 mL/m?. Mitral valve thickening with evidence of mild to moderate mitral regurgitation. Mild to moderate tricuspid regurgitation with moderate pulmonary hypertension. ? pending cardiac cath today with Dr. Terry ? Continue heparin drip ? on aspirin 81 mg daily ? on atorvastatin 80 mg at bedtime ? Metoprolol succinate 25 mg daily ? N.p.o. for procedure ? Cardiology is on board, will follow-up with recommendations ? Control risk factors such as HTN, HLD, BS #Acute hypoxic respiratory failure secondary to NSTEMI versus pleural effusion Patient does not have any history of COPD, denies home oxygen use Presented with chief complaint of shortness of breath, Upon my evaluation patient was not 2 L nasal cannula saturating 92% CTA revealed perihilar vascular edema with moderate to large right pleural effusion and a moderate left pleural effusion ? Strict KENYA's ? Daily weight ? Fluid restriction 1500 ? Echo ? Follow-up with cardiology recommendations ? Currently patient is on heparin drip, we will defer Thoracentesis ? consider Lasix 40 daily #Hypertension #Hyperlipidemia per above Disposition:telebed, pending cardiac cath DVT prophylaxis: heparin drip GI prophylaxis: PPI Diet: N.p.o. for procedure Lines: PIV CODE STATUS:Full code Case discussed with my senior Dr. Perkins and my attending Dr. Dharmesh Menendez MD PGY-1 Attending Provider Attestation/Addendum I, aPyton Barroso, DO, attest that I was physically present for the nair portions of the service and evaluated the patient with the resident and I reviewed and discussed the case with the resident and agree with the resident's findings and plans of care as documented above Patient seen and evaluated this afternoon following cardiac cath. Patient was seen in cardiac cath and had no acute complaints. Patient is able to lay flat, but reports mild shortness of breath. 1 stent was placed as patient was found to have 99% stenosis of LAD. Discussed importance of dual antiplatelet therapy with patient and at bedside later on in the evening. Will continue with current management and anticipate discharge within the next 24 hours if patient condition remains stable. Echocardiogram was done yesterday showing severe global hypokinesis with an ejection fraction of 30 to 35%. Will start patient on goal-directed medical therapy if blood pressure permits.
[2025-03-16] MEDS: SODIUM CHLORIDE 0.45 % 500 ML 150 ML IV (14:00)
--- NOTE | 2025-03-16 14:24 | PC.SS ---
Rounding Note: Cardiac cath procedure is pending. Dr. Terry to perform procedure.
--- NOTE | 2025-03-16 16:23 | PC.NURSE ---
FEMORAL SHEATH (VENOUS ACCESS) TO THE RIGHT GROIN AREA REMOVED ABOUT 1600. MANUAL PRESSURE APPLIED FOR 15 MINUTES UNTIL HEMOSTASIS ACHIEVED. PATIENT TOLERATED PROCEDURE WELL WITHOUT COMPLICATIONS. SURGICAL SITE ASYMPTOMATIC, NO ACTIVE BLEEDING, NO HEMATOMA NOTED ON RIGHT GROIN AREA. RIGHT FEMORAL PULSE NOTED WITH NO CHANGES IN STRENGHT AND QUALITY, RIGHT DORSALIS PEDIS PULSE NOTED WITH NO CHANGES STRENGHT AND QUALITY. DISTAL CAPPILARRY REFILL <3 SECONDS (Baseline, Right Toes). NO NOTED CHANGES IN COLOR OR TEMPERATURE ON RIGHT LOWER EXTREMITY. PATIENT DENIES GENERAL AND LOCALIZED PAIN. NO TINGLING OR NUMBNESS FELT TO RIGHT LOWER EXTREMITY. SURGICAL SITE COVERED WITH GAUZE AND TAGADERM DRESSING, WHICH REMAIN DRY AND INTACT. WILL CONTINUE TO MONITOR.
--- NOTE | 2025-03-16 19:15 | ESOP_ITS ---
RE: TEO LAYNE : 1955 DATE OF OPERATION: 03/16/2025 PROCEDURE PERFORMED: 1. Diagnostic right and left heart cardiac catheterization, selective coronary angiogram, left ventricular angiogram, CPT 08716. 2. Emergency PTCA stent placement of the mid left anterior descending artery; placement of drug-eluting stent 2.5 x 12 mm [place] Medtronic stent. Pre-procedure stenosis 90%, post-procedure stenosis 0%. CHERYL flow pre-procedure 2, post-procedure 3. cpt 16678 3. PTCA of the proximal left anterior descending artery for in-stent restenosis with multiple balloons including 2.5 mm and 3 mm NC balloons, preprocedure stenosis 99%, post procedure stenosis 0%. Pre-procedure CHERYL flow was 1, post-procedure CHERYL flow 3, CPT 24958. 4. Ultrasound-guided access, right radial artery and right femoral vein. DIAGNOSES: Congestive heart failure, acute non-ST segment elevation myocardial infarction, ischemic cardiomyopathy, acute decompensated heart failure, and acute myocardial infarction. HISTORY AND INDICATIONS: The patient is a 69-year-old male with a history of known CAD, multiple stents placed between 2000 and 2004, 5 stents placed in the LAD. He has been doing well until recently. The patient had progressive shortness of breath and congestive heart failure symptoms, came with chest tightness, heaviness, shortness of breath, elevated troponin levels, acute non-ST segment elevation myocardial infarction, acute decompensated systolic heart failure, aggressive diuretics yesterday and recommended to have right and left heart cardiac catheterization and possible PCI of the infarct vessel. DESCRIPTION OF PROCEDURE: The patient was brought to cardiac catheterization laboratory. He was given 2 mg of Versed and 50 mcg of fentanyl for sedation. Right radial approach was taken for left heart catheterization. Right radial artery cannulated by micropuncture technique, 6-[place] Glidesheath was introduced. Right femoral vein was cannulated, 7-[place]amo[place] sheath was introduced. Right heart catheterization was performed with [place]-Indira catheter. Right heart pressures were measured. Left heart catheterization performed with 5-Samo[place] TIG-4.5 diagnostic catheter. Left ventricular angiogram performed subsequently. Right coronary angiogram performed by FR4 diagnostic catheter. Left coronary angiogram performed by JL4 diagnostic catheter, 5-Samoan catheter was used. Subsequently, intervention was under taken. Diagnostic procedure showed following findings. Right heart catheterization showed following findings. Right atrial pressure was found to be 8 mmHg. Right ventricular pressure 34/8 mmHg. Pulmonary artery pressure 41/19 mmHg, mean pulmonary artery pressure 27, pulmonary artery wedge pressure 12 mmHg, well-treated heart failure. Left ventricular pressure 93/8, EDP is 29, aortic pressure 90/55, mean 64. No gradient across the aortic valve. Left ventricular angiogram showed evidence of extensive anteroapical and anterolateral akinesis and severe global hypokinesis, ejection fraction approximately 30%. Coronary angiogram showed following findings. The right coronary artery is small and nondominant. It is totally occluded in the proximal segment and small vessel supplying right ventricle branches only. Left coronary system. Left main coronary artery showed calcification. There was a mild plaque in the distal segment. Left anterior descending artery showed multiple stents in proximal mid segments, at least four of them. There is evidence of in-stent restenosis in the proximal mid segment 99% maximum stenosis. There is also distal to the last stent there was 80% stenosis. The CHERYL flow was only 1. Distal flow was slow. Left circumflex artery is large and dominant, gives off PDA and posterolateral branch, and obtuse marginal branch. There is mild disease. No significant stenosis. The patient did have acute anterior wall myocardial infarction with no significant ST elevation. Culprit lesion is LAD with in-stent restenosis. There was de earlene lesion, hence complex PCI was recommended. The patient was given IV heparin. Additional heparin was given 6000 units and ACT was therapeutic. Proceeded with PCI. The patient had a 6-Samo[place] EBU 3.5 guiding catheter was used to cannulate the left main coronary artery, 0.014 Runthrough wire was used to cross the lesion successfully. A 2.5 mm Medtronic balloon was used to dilate the lesion successfully. Subsequently, 3.0 x 15 mm NC balloon was used and aggressively dilated using 16 to 18 atmospheric pressure. Distal-most stent was patent, but distal to the stent there was evidence of 80% stenosis, recommended to have additional stent placed in the distal segment in the mid LAD, 2.5 x 12 mm [place] Medtronic drug-eluted stent was deployed in the distal most lesion, which is de earlene stenosis just before the stent in the mid LAD and pre-procedure stenosis at 80% and post- procedure stenosis 0%. Final angiogram showed widely patent left anterior descending artery. CHERYL 3 flow. No complications. TR band was applied. Hemostasis was secured. SUMMARY OF FINDINGS: 1. Normal right heart pressure and well-treated congestive heart failure. 2. Elevated left ventricular end-diastolic pressure. 3. Ischemic cardiomyopathy with acute systolic heart failure, ejection fraction of 30%, anterolateral akinesis. 4. In-stent restenosis of the mid proximal left anterior descending artery, 95% stenosis, underwent successful stent placed at the mid left anterior descending artery and successful angioplasty with noncompliance balloon of the proximal segment with excellent angiographic results. RECOMMENDATIONS: The patient will be continued on diuretic therapy. We will pull back to oral diuretic, bumetanide 1 mg daily and spironolactone 25 mg daily. We will also recommend a low-dose Entresto if the patient can tolerate. Aspirin and Brilinta will be continued and dual antibiotic drug therapy. The patient's heart failure is well compensated, 90 days after revascularization if the ejection fraction remains 30% may require ICD implantation since the ejection fraction is quite low and extensive anterolateral apical akinesis. We will optimize heart failure management next 1-2 days before discharging home. DT: 17:43:09 TT: 18:41:00 Ref: [id number] - TID: [id number] MTDD
--- NOTE | 2025-03-16 19:15 | PC.NURSE ---
Patient remained flat through end of shift, during shift hand-off, TONYA Montague and myself confirmed no hematoma present. Dorsalis Pedis and Posterior tibial pulse +1, CMS of right hand and right foot intact. TONYA Montague made aware that patient can be sat up per sawyer cork slabs instruction, tegaderm to be removed at 1630 on 03/17 and tegaderm to be removed at 1630 on 03/18.
[2025-03-16] MEDS: ATORVASTATIN CALCIUM 20 MG TABLET 80 MG PO (20:00)
[2025-03-16] MEDS: MELATONIN 3 MG TABLET PO (23:48)
[2025-03-17] VITALS (10 sets, daily range): BP systolic 103–114; BP diastolic 62–69; PULSE 57–94; RESP 15–22; TEMP 36.4–36.8; O2SAT 93–99; BMI 33.7
[2025-03-17] MEDS: DiphenhydrAMINE 25 MG CAPSULE PO (01:44)
[2025-03-17 06:20] LABS: Basophils % (Auto) 1 % (0-2.5); Eosinophils # (Auto) 0.1 Thou/mm3 (0.0-0.5); Eosinophils % (Auto) 1 % (0-10); Hematocrit 28.7 % (41.0-53.0); Hemoglobin 8.9 g/dL (13.5-16.0); Immature Granulocytes % (Auto) 1 % (0-0); Immature Granulocytes Auto 0.05 Thou/mm3 (0.00-0.00); Lymphocytes # (Auto) 1.5 Thou/mm3 (1.0-4.8); Lymphocytes % (Auto) 17 % (10-50); Mean Corpuscular Hemoglobin 25.4 pg (25.0-35.0); Mean Corpuscular Volume 82 fL (80-100); Monocytes # (Auto) 0.9 Thou/mm3 (0.0-0.8); Monocytes % (Auto) 10 % (0-12); Neutrophils # (Auto) 6.1 Thou/mm3 (1.8-7.7); Neutrophils % (Auto) 71 % (37-80); Nucleated Red Blood Cell % 0 /100 WBC (0); Platelet Count 190 Thou/mm3 (140-440); RDW Standard Deviation 51.2 fL (35.1-43.9); Red Blood Count 3.51 Miln/mm3 (4.50-5.90); White Blood Count 8.7 Thou/mm3 (3.8-10.6)
[2025-03-17 06:42] LABS: Alanine Aminotransferase 28 U/L (10-49); Albumin, Serum 4.2 gm/dL (3.4-4.8); Albumin/Globulin Ratio 1.9 (1.2-2.2); Alkaline Phosphatase 74 U/L (46-116); Anion Gap 12 (7-16); Aspartate Amino Transferase 28 U/L (0-34); BUN/Creatinine Ratio 26 Ratio (12-20); Bilirubin,Total 2.7 mg/dL (0.3-1.2); Blood Urea Nitrogen 26 mg/dL (9-23); Calcium 8.7 mg/dL (8.3-10.6); Calcium (Corrected) 8.7 mg/dL (8.5-10.1); Carbon Dioxide 24.7 mMol/L (20.0-31.0); Chloride 105 mMol/L (98-107); Globulin 2.2 gm/dL (2.3-3.5); Glucose 123 mg/dL (74-106); Magnesium 2.1 mg/dL (1.6-2.6); Osmolality,Calculated 288 (275-295); Potassium 3.6 mMol/L (3.4-5.1); Sodium 142 mMol/L (136-145); Total Protein 6.4 gm/dL (5.7-8.2); eGFR > 60 See Note
[2025-03-17] MEDS: VIT B12/Vit C/FA (Nephrovite) TABLET 1 TAB PO (08:39)
[2025-03-17] MEDS: ASPIRIN EC 81 MG TABEC PO (08:39)
[2025-03-17] MEDS: TICAGRELOR 90 MG TABLET PO ×2 (08:40→20:10)
[2025-03-17] MEDS: PANTOPRAZOLE 40 MG TABLET PO (08:40)
[2025-03-17] MEDS: POTASSIUM CHLORIDE 20 mEq TABCR 40 MEQ PO (08:40)
[2025-03-17] MEDS: SPIRONOLACTONE 25 MG TABLET PO (08:40)
[2025-03-17] MEDS: BUMETANIDE 0.5 MG TABLET 1 MG PO (08:40)
[2025-03-17] MEDS: METOPROLOL SUCCINATE XL 25 MG TABCR PO (08:41)
[2025-03-17] MEDS: IRON SUCROSE CPLX INJ 20 MG/ML VIAL 5 ML 200 MG IVP (08:55)
--- NOTE | 2025-03-17 09:25 | PC.SS ---
Follow up note: Heart failure meds arranged and optimized. Pt is possible d/c on Thursday. Pt will return home upon dc.
--- NOTE | 2025-03-17 11:05 | ESPR_ITS ---
<Statement entered by Bert Terry MD - 03/17/25 17:38> I personally evaluated examined the patient with appears to be doing clinically much better heart failure well compensated underwent stent placement successfully of the LAD has HFrEF does not complain of any chest pain feeling better now shortness of breath continue medical management will continue to monitor the patient close agree with the treatment plan recommendation as documented by Dr. Velazquez PGY 2 Documentation for date of: 03/17/25 Subjective Subjective Interval history: Patient is a 69 years old male with past medical history of CAD s/p PCI hypertension, hyperlipidemia, prediabes presented to the ED due to chest pain and shortness of breath after walking yesterday evening. He is pain free at this moment. He reports the pain is located in the middle of the chest and is pressure like pain. He denies any radiation of the pain or associated symptoms like diaphoresis nausea or vomiting. He reports chest pain lasted for 1 hour and resolved by its own when he started resting. He had similar chest pain and shortness of breath episode last week when he was working on his fence. He had 2 myocardial infarctions before and had multiple stents placed, last time in [place] and [place]. He is taking aspirin at home but does not take atorvastatin because he was told not to take it. He also reports that over the last several months he was not able to sleep because of shortness of breath and needed multiple pillows to sleep comfortably. His legs also got swollen recently. On admission blood pressure 100/63, pulse 98, respirations 28, temperature 98.5 ?F, oxygen saturation 90% on 4 L NC. Labs showed hemoglobin 10.5, chloride 108, glucose 145, hemoglobin A1c 6.5%, total bilirubin 2.1, BNP 417, Troponin I 6.889. EKG showed ST segment depressions in II, V5-V6. Chest CTA showed [id number] CHF, moderate to large right pleural effusion, moderate left pleural effusion. He was started on heparin drip and was admitted for further management. Cardiology was consulted due to NSTEMI. 03/15/2025: Patient was seen and examined at bedside. He reports his chest pain has resolved completely. He is on 4L NC saturating well in 90s and is not in distress. His troponin I remains downtrending, last reading 4.907. He is planned for cardiac cath tomorrow. Given loading dose of Brilinta. He was given Lasix 40 mg x1 IV due to orthopnea, echo is pending. 03/16/2025: Cardiac cath showed normal right heart pressure and well-treated congestive heart failure. Elevated left ventricular end-diastolic pressure. Ischemic cardiomyopathy with acute systolic heart failure, ejection fraction of 30%, anterolateral akinesis.In-stent restenosis of the mid proximal left anterior descending artery, 95% stenosis. Underwent successful stent placed at the mid left anterior descending artery and successful angioplasty with noncompliance balloon of the proximal segment with excellent angiographic results. The patient will be continued on diuretic therapy. We will pull back to oral diuretic, bumetanide 1 mg daily and spironolactone 25 mg daily. We will also recommend a low-dose Entresto if the patient can tolerate. Aspirin and Brilinta will be continued and dual antibiotic drug therapy. The patient's heart failure is well compensated, 90 days after revascularization if the ejection fraction remains 30% may require ICD implantation since the ejection fraction is quite low and extensive anterolateral apical akinesis. We will optimize heart failure management next 1-2 days before discharging home. 03/17/2025: Patient was seen and examined at bedside. He reports no chest pain or pressure episodes. However he reports he is still having some difficulty sleeping due to shortness of breath. He remains on 6 L NC saturating 93%, possibly due to bilateral pleural effusion. His blood pressure is soft, last reading 112/63 pulse 85. Will hold off on Entresto today due to soft blood pressure. Continue current management with aspirin, ticagrelor, atorvastatin, Bumex 1 mg daily orally, metoprolol succinate 25 mg daily, spironolactone. Recommended to repeat CXR to assess pleural effusions. Exam Vital Signs Temp Pulse Resp BP Pulse Ox O2 Del Method O2 Flow Rate 97.6 F 85 20 112/63 94 L Oxy Mask 6 03/17/25 08:00 03/17/25 08:41 03/17/25 08:00 03/17/25 08:41 03/17/25 08:00 03/17/25 08:00 03/17/25 08:00 Narrative Exam Gen: Well-developed and well-nourished elderly male. HEENT: NCAT, PERRLA, EOMI, MMM, anicteric conjunctivae. CVS: normal S1 and S2. RRR. No M/R/G. Resp: no BS B/L bases, mild crackles B/L. No rhonchi, rales or wheezing. Abd: soft, non-tender, non-distended. BS+ in all 4 quadrants. MSK: Good ROM in BUE & BLE. 1+ pitting edema BLE. Neuro: CN II-XII grossly intact. Strength 5/5 in BUE & BLE. Alert and oriented x3. Psych: appropriate mood and affect. Objective Labs 03/17/25 05:42 03/17/25 05:42 Labs: Laboratory Results - last 24 hr 03/16/25 03/17/25 13:32 05:42 WBC 8.7 RBC 3.51 L Hgb 8.9 L Hct 28.7 L MCV 82 MCH 25.4 MCHC 31.0 RDW Std Deviation 51.2 H Plt Count 190 Neut % (Auto) 71 Lymph % (Auto) 17 [place] % (Auto) 10 Eos % (Auto) 1 Baso % (Auto) 1 Neut # (Auto) 6.1 Lymph # (Auto) 1.5 [place]vert # (Auto) 0.9 H Eos # (Auto) 0.1 Baso # (Auto) 0.0 Immature Gran # (Auto) 0.05 H Absolute Nucleated RBC 0.00 Immature Gran % 1 H Nucleated RBC % 0 Activated Clotting Time 268.0 H Sodium 142 Potassium 3.6 Chloride 105 Carbon Dioxide 24.7 Anion Gap 12 BUN 26 H Creatinine 1.0 Estim Creat Clear Calc 93.0 eGFR > 60 BUN/Creatinine Ratio 26 H Glucose 123 H Calculated Osmolality 288 Calcium 8.7 Corrected Calcium 8.7 Magnesium 2.1 Total Bilirubin 2.7 H AST 28 ALT 28 Alkaline Phosphatase 74 Total Protein 6.4 Albumin 4.2 Globulin 2.2 L Albumin/Globulin Ratio 1.9 Quality Measures Quality Measures VTE prophylaxis Advance care planning discussed with:: patient Assessment & Plan Assessment Current Active Medications: Generic Name Dose Route Start Last Admin Trade Name Freq PRN Reason Stop Dose Admin Acetaminophen 650 mg 03/14/25 22:08 Acetaminophen 325 Mg Tablet PO 04/13/25 22:07 Q6H PRN PAIN OR FEVER > 101 Aspirin 81 mg 03/15/25 09:00 03/17/25 08:39 Aspirin Ec 81 Mg Tabec PO 04/14/25 08:59 81 mg QDAY MONTSE Administration Atorvastatin Calcium 80 mg 03/14/25 23:05 03/16/25 20:00 Atorvastatin Calcium 20 Mg Tablet PO 04/13/25 23:04 80 mg HS MONTSE Administration Bumetanide 1 mg 03/17/25 09:00 03/17/25 08:40 Bumetanide 0.5 Mg Tablet PO 04/16/25 08:59 1 mg QDAY MONTSE Administration Melatonin 3 mg 03/16/25 23:40 03/16/25 23:48 Melatonin 3 Mg Tablet PO 04/15/25 23:39 3 mg HS MONTSE Administration Metoprolol Succinate 25 mg 03/16/25 09:00 03/17/25 08:41 Metoprolol Succinate Xl 25 Mg Tabcr PO 04/15/25 08:59 25 mg QDAY MONTSE Administration Ondansetron HCl 4 mg 03/14/25 22:08 Ondansetron Inj 2 Mg/Ml Inj 2 Ml IVP 04/13/25 22:07 Q6H PRN NAUSEA OR VOMITING Protocol Pantoprazole Sodium 40 mg 03/15/25 09:00 03/17/25 08:40 Pantoprazole 40 Mg Tablet PO 04/14/25 08:59 40 mg QDAY MONTSE Administration Spironolactone 25 mg 03/17/25 09:00 03/17/25 08:40 Spironolactone 25 Mg Tablet PO 04/16/25 08:59 25 mg QDAY MONTSE Administration Ticagrelor 90 mg 03/16/25 09:00 03/17/25 08:40 Ticagrelor 90 Mg Tablet PO 04/15/25 08:59 90 mg BID MONTSE Administration Vitamin B Complex/Vit C/Folic Acid 1 tab 03/17/25 09:00 03/17/25 08:39 Vit B12/Vit C/Fa (Nephrovite) Tablet PO 04/16/25 08:59 1 tab QDAY MONTSE Administration Zolpidem Tartrate 2.5 mg 03/17/25 10:01 Zolpidem 5 Mg Tablet PO 04/16/25 10:00 HS PRN INSOMNIA Plan Patient is a 69 years old male with past medical history of CAD s/p PCI, hypertension, hyperlipidemia, prediabes presented to the ED due to chest pain and shortness of breath after walking yesterday evening, labs showed elevated troponin I and EKG showed ST segment depressions, he was admitted for further management and cardiology was consulted. #NSTEMI s/p PCI. #CAD s/p PCI. #Previous coronary multivessel stent placement. #HFrEF acute exacerbation with pleural effusions. #HFrEF with EF 30-35% NYHA class II. #Hx of hyperlipidemia. #Bilateral pleural effusions. Chest CTA showed [id number] CHF, moderate to large right pleural effusion, moderate left pleural effusion. Troponin I on admission 6.889, downtrending, last reading 4.907. BNP 417. EKG showed ST segment depressions in II, V5-V6. The patient came to the hospital with classic presentation of recent shortness of breath congestive heart failure with ACS NSTEMI symptoms also severe worsening of shortness of breath acutely decompensated congestive heart failure. Since the patient is significant troponin elevation we will go ahead and plan on doing coronary angiogram right and left heart cardiac catheterization possible later tomorrow afternoon or Thursday depending on the patient's ability to lay flat. The patient has no history of CAD multivessel stent placement between 2000 and 2004 but not recent came to the hospital severe shortness of breath bilateral pleural effusions as well as clinical acute decompensated congestive heart failure BNP elevation and ST depression precordial leads possible ischemic cardiomyopathy echo showed ejection fraction 35% with anteroseptal apical akinesis possible recent myocardial infarction versus old anterolateral microinfarction. Patient will recommend a right and left heart cardiac catheterization coronary angiogram and possible PCI if indicated we will schedule patient for tomorrow afternoon probably Thursday if does not improve that well especially patient is quite orthopneic currently sitting upright. Echo from 03/14/2025 showed Mildly dilated left ventricular with ischemic cardiomyopathy anteroseptal apical akinesis with moderate to severe global hypokinesis left ventricular ejection fraction 30 to 35%. Plan: - continue aspirin, atorvastatin, Brilinta 90 mg BID, metoprolol succinate 25 mg daily, spironolactone 25 mg daily, Bumex 1 mg PO QD. - keep monitoring electrolytes. - start ACEi/ARB or Entresto when possible. - strict I&O and daily weights. - fluid restriction 1500cc/day. - low sodium diet. #Hx of hypertension. - On admission BP 100/63 and remains soft. Plan: - resume valsartan or change to Entresto when appropriate. Management of other problems as per primary team. Plan of care discussed with attending Dr. Terry. Marcus Morillo MD, PGY 2. Disclaimer: This note was dictated by speech recognition. Minor errors in health insurance adjuster may be present due to voice recognition software.
--- NOTE | 2025-03-17 13:46 | XR_ITS ---
Examination: AP chest single view Technique one AP portable semiupright chest single view Date and time: March 17, 2025 1400 hours Comparison March 14, 2025 INDICATIONS: Difficulty breathing this week. FINDINGS: Mild heart failure Bibasilar pneumonia Small left pleural effusion IMPRESSION: Mild heart failure Bibasilar pneumonia
--- NOTE | 2025-03-17 15:04 | ESPR_ITS ---
<Statement entered by Dustin Perkins MD - 03/17/25 18:30> Patient examined and case discussed with the team including attending physician. Note reviewed, I agree with the care plan as documented. Mr Chu is a 69-year-old male with past medical history of hypertension, hyperlipidemia, coronary artery disease status post stent placement was admitted for acute coronary syndrome/non-STEMI type I and acute shortness of breath. EKG remarkable for ST depression in lead II and III, aVF, Troponin was elevated at 6.8. CTA revealed perihilar vascular edema with moderate to large right pleural effusion and a moderate left pleural effusion. In the ED patient was loaded with ASA. Echo from 2019 showed: Ejection fraction 50-55%. Cardiology is on board, appreciate recommendations. 03/16 Cardiac cath; Findings: 99% LAD occlusion s/p stent in main LAD. Plan: Started on GDMT: DAPT + Bumex qD + Spirinolactone 25mg qD. Entresto to be added if BP permits, will start 1/2 tablet as tolerated. Strict KENYA's, daily weight, fluid restriction 1500cc. Echo ordered, pending read. Will get up to chair, ambulation encouraged. Will likely need home O2. [place] to [place] tomorrow. Anticipate DC in 24 - 48 hours. Please refer to the note below for further details. - Dustin Perkins MD, PGY 2 Disclaimer: The document may contain phonetic/typographic errors due to voice recognition software. These errors are purely due to imperfections in the software program and should not be misconstrued in any way to compromise the substance of the patient's medical care during this visit. Documentation for date of: 03/17/25 Subjective Subjective Interval history: Patient seen today at the bedside found awake, alert, orientedx3. No overnight events reported. No active complaints at this time. Vitals and labs reviewed. If blood pressure tolerates will start half a tab of Entresto. As part of his goal-directed medical therapy for heart failure with reduced ejection fraction. Possibly will require home oxygen therapy. Exam Vital Signs Temp Pulse Resp BP Pulse Ox O2 Del Method O2 Flow Rate 98.2 F 81 22 H 103/69 96 Oxy Mask 6 03/17/25 12:00 03/17/25 12:03/17/25 12:03/17/25 12:03/17/25 12:00 03/17/25 12:00 03/17/25 12:00 Narrative Exam Physical Exam GENERAL: NAD, AAOx3 HEENT: Moist mucosa. Eyes open, symmetrical, & clear CARDIO: Heart RRR, no obvious murmurs PULM: No noted coughing/dyspnea CTA B/L, no R/W/R GI: Abdomen soft, nondistended, no pain on palpation. BSx4 SKIN/MSK/EXT: trace bilateral lower extremity edema, no pain on palpation. Pedal pulses present B/L NEURO: AAOx3, no focal neuro deficits, able to move all 4 extremities Objective Labs 03/17/25 05:42 03/17/25 05:42 Labs: Laboratory Results - last 24 hr 03/16/25 03/17/25 13:32 05:42 WBC 8.7 RBC 3.51 L Hgb 8.9 L Hct 28.7 L MCV 82 MCH 25.4 MCHC 31.0 RDW Std Deviation 51.2 H Plt Count 190 Neut % (Auto) 71 Lymph % (Auto) 17 Rankin % (Auto) 10 Eos % (Auto) 1 Baso % (Auto) 1 Neut # (Auto) 6.1 Lymph # (Auto) 1.5 Rankin # (Auto) 0.9 H Eos # (Auto) 0.1 Baso # (Auto) 0.0 Immature Gran # (Auto) 0.05 H Absolute Nucleated RBC 0.00 Immature Gran % 1 H Nucleated RBC % 0 Activated Clotting Time 268.0 H Sodium 142 Potassium 3.6 Chloride 105 Carbon Dioxide 24.7 Anion Gap 12 BUN 26 H Creatinine 1.0 Estim Creat Clear Calc 93.0 eGFR > 60 BUN/Creatinine Ratio 26 H Glucose 123 H Calculated Osmolality 288 Calcium 8.7 Corrected Calcium 8.7 Magnesium 2.1 Total Bilirubin 2.7 H AST 28 ALT 28 Alkaline Phosphatase 74 Total Protein 6.4 Albumin 4.2 Globulin 2.2 L Albumin/Globulin Ratio 1.9 Quality Measures Quality Measures VTE prophylaxis Advance care planning discussed with:: patient Assessment & Plan Assessment Current Active Medications: Generic Name Dose Route Start Last Admin Trade Name Freq PRN Reason Stop Dose Admin Acetaminophen 650 mg 03/14/25 22:08 Acetaminophen 325 Mg Tablet PO 04/13/25 22:07 Q6H PRN PAIN OR FEVER > 101 Aspirin 81 mg 03/15/25 09:00 03/17/25 08:39 Aspirin Ec 81 Mg Tabec PO 04/14/25 08:59 81 mg QDAY MONTSE Administration Atorvastatin Calcium 80 mg 03/14/25 23:05 03/16/25 20:00 Atorvastatin Calcium 20 Mg Tablet PO 04/13/25 23:04 80 mg HS MONTSE Administration Bumetanide 1 mg 03/17/25 09:00 03/17/25 08:40 Bumetanide 0.5 Mg Tablet PO 04/16/25 08:59 1 mg QDAY MONTSE Administration Melatonin 3 mg 03/16/25 23:40 03/16/25 23:48 Melatonin 3 Mg Tablet PO 04/15/25 23:39 3 mg HS MONTSE Administration Metoprolol Succinate 25 mg 03/16/25 09:00 03/17/25 08:41 Metoprolol Succinate Xl 25 Mg Tabcr PO 04/15/25 08:59 25 mg QDAY MONTSE Administration Ondansetron HCl 4 mg 03/14/25 22:08 Ondansetron Inj 2 Mg/Ml Inj 2 Ml IVP 04/13/25 22:07 Q6H PRN NAUSEA OR VOMITING Protocol Pantoprazole Sodium 40 mg 03/15/25 09:00 03/17/25 08:40 Pantoprazole 40 Mg Tablet PO 04/14/25 08:59 40 mg QDAY MONTSE Administration Sacubitril/Valsartan 0.5 tab 03/17/25 17:00 Sacubitril 24 Mg/Valsartan 26 Mg Tablet PO 04/16/25 16:59 BID MONTSE Spironolactone 25 mg 03/17/25 09:00 03/17/25 08:40 Spironolactone 25 Mg Tablet PO 04/16/25 08:59 25 mg QDAY MONTSE Administration Ticagrelor 90 mg 03/16/25 09:00 03/17/25 08:40 Ticagrelor 90 Mg Tablet PO 04/15/25 08:59 90 mg BID MONTSE Administration Vitamin B Complex/Vit C/Folic Acid 1 tab 03/17/25 09:00 03/17/25 08:39 Vit B12/Vit C/Fa (Nephrovite) Tablet PO 04/16/25 08:59 1 tab QDAY MONTSE Administration Zolpidem Tartrate 2.5 mg 03/17/25 10:01 Zolpidem 5 Mg Tablet PO 04/16/25 10:00 HS PRN INSOMNIA Plan 69-year-old male with past medical history of hypertension, hyperlipidemia, coronary artery disease status post stent placement was admitted for acute coronary syndrome/non-STEMI type I treatment and management. #Acute Coronary Syndrome #NSTEMI type I Patient presented with chief complaints of shortness of breath, chest pressure EKG remarkable for ST depression in lead II and III, aVF Troponin was elevated at 6.8 In the ED patient was loaded with ASA Lipid panel wnl Echo: Mildly dilated left ventricular with ischemic cardiomyopathy anteroseptal apical akinesis with moderate to severe global hypokinesis left ventricular ejection fraction 30 to 35%. RV is normal in size and systolic function. The estimated RVSP, 67 mmHg. RAP 10. Moderately increased LA volume 42.1 mL/m?. Mitral valve thickening with evidence of mild to moderate mitral regurgitation. Mild to moderate tricuspid regurgitation with moderate pulmonary hypertension. ? pending cardiac cath today with Dr. Terry ? Continue heparin drip ? on aspirin 81 mg daily ? on atorvastatin 80 mg at bedtime ? Metoprolol succinate 25 mg daily ? N.p.o. for procedure ? Cardiology is on board, will follow-up with recommendations ? Control risk factors such as HTN, HLD, BS #Acute hypoxic respiratory failure secondary to NSTEMI versus pleural effusion Patient does not have any history of COPD, denies home oxygen use Presented with chief complaint of shortness of breath, Upon my evaluation patient was not 2 L nasal cannula saturating 92% CTA revealed perihilar vascular edema with moderate to large right pleural effusion and a moderate left pleural effusion ? Strict KENYA's ? Daily weight ? Fluid restriction 1500 ? Follow-up with cardiology recommendations ? Currently patient is on heparin drip, we will defer Thoracentesis ? consider Lasix 40 daily #Hypertension #Hyperlipidemia per above Disposition:telebed, diuresis DVT prophylaxis: heparin drip GI prophylaxis: PPI Diet: N.p.o. for procedure Lines: PIV CODE STATUS:Full code Case discussed with my senior Dr. Perkins and my attending Dr. Ryder Menendez MD PGY-1 Attending Provider Attestation/Addendum I attest that I was physically present for the evaluation, physical examination, lab and imaging review of the patient with the residents. I discussed the case with the residents and agree with the findings and plans of care as documented above. At bedside today, patient states he is feeling well. Denies any new complaints including chest pain, cough, palpitations. Continues to be on nasal cannula, saturating well. Lab results are stable. Patient cardiology yesterday, was found to have in-stent restenosis of mid proximal LAD, 95%, underwent successful angioplasty. Aspirin, Brilinta, statin. Will 25 daily, spironolactone 25 mg daily. We will add sacubitril valsartan half tablet and monitor closely if he can tolerate. Cardiology following closely, appreciate recommendations. Ricky Soler MD
[2025-03-17] MEDS: SACUBITRIL 24 MG/VALSARTAN 26 MG TABLET 0.5 TAB PO (17:33)
[2025-03-17] MEDS: ATORVASTATIN CALCIUM 20 MG TABLET 80 MG PO (20:10)
[2025-03-17] MEDS: MELATONIN 3 MG TABLET PO (20:10)
[2025-03-18] VITALS (8 sets, daily range): BP systolic 100–116; BP diastolic 57–79; PULSE 75–100; RESP 12–98; TEMP 36.2–36.9; O2SAT 95–98; BMI 34.1
[2025-03-18] MEDS: ASPIRIN EC 81 MG TABEC PO (08:06)
[2025-03-18] MEDS: VIT B12/Vit C/FA (Nephrovite) TABLET 1 TAB PO (08:06)
[2025-03-18] MEDS: PANTOPRAZOLE 40 MG TABLET PO (08:06)
[2025-03-18] MEDS: SPIRONOLACTONE 25 MG TABLET PO (08:07)
[2025-03-18] MEDS: METOPROLOL SUCCINATE XL 25 MG TABCR PO (08:07)
[2025-03-18] MEDS: TICAGRELOR 90 MG TABLET PO (08:07)
[2025-03-18] MEDS: BUMETANIDE 0.5 MG TABLET 1 MG PO (08:07)
[2025-03-18] MEDS: POTASSIUM CHLORIDE 20 mEq TABCR 40 MEQ PO (08:21)
--- NOTE | 2025-03-18 11:09 | PC.NURSE ---
Patient ambulated without O2, patient SPO2 remained above 95%. Patient voided x2 post catheter removal.
--- NOTE | 2025-03-18 13:29 | ESPR_ITS ---
<Statement entered by Bert Terry MD - 03/19/25 19:35> I personally evaluated examined the patient appears to be clinically doing better does not complain of shortness of or chest pain admitted to hospital congestive heart failure acute microinfarction underwent stent placement successfully stable to be discharged will monitor the patient will be followed as an outpatient continue to medical management discharged home in dual antiplatelet drug therapy and guideline directed medical management post [place] will follow the patient as an outpatient agree with the treatment plan recommendation as documented by Dr. Velazquez PGY 2 Documentation for date of: 03/18/25 Subjective Subjective Interval history: Patient is a 69 years old male with past medical history of CAD s/p PCI hypertension, hyperlipidemia, prediabes presented to the ED due to chest pain and shortness of breath after walking yesterday evening. He is pain free at this moment. He reports the pain is located in the middle of the chest and is pressure like pain. He denies any radiation of the pain or associated symptoms like diaphoresis nausea or vomiting. He reports chest pain lasted for 1 hour and resolved by its own when he started resting. He had similar chest pain and shortness of breath episode last week when he was working on his fence. He had 2 myocardial infarctions before and had multiple stents placed, last time in [place] and [place]. He is taking aspirin at home but does not take atorvastatin because he was told not to take it. He also reports that over the last several months he was not able to sleep because of shortness of breath and needed multiple pillows to sleep comfortably. His legs also got swollen recently. On admission blood pressure 100/63, pulse 98, respirations 28, temperature 98.5 ?F, oxygen saturation 90% on 4 L NC. Labs showed hemoglobin 10.5, chloride 108, glucose 145, hemoglobin A1c 6.5%, total bilirubin 2.1, BNP 417, Troponin I 6.889. EKG showed ST segment depressions in II, V5-V6. Chest CTA showed [id number] CHF, moderate to large right pleural effusion, moderate left pleural effusion. He was started on heparin drip and was admitted for further management. Cardiology was consulted due to NSTEMI. 03/15/2025: Patient was seen and examined at bedside. He reports his chest pain has resolved completely. He is on 4L NC saturating well in 90s and is not in distress. His troponin I remains downtrending, last reading 4.907. He is planned for cardiac cath tomorrow. Given loading dose of Brilinta. He was given Lasix 40 mg x1 IV due to orthopnea, echo is pending. 03/16/2025: Cardiac cath showed normal right heart pressure and well-treated congestive heart failure. Elevated left ventricular end-diastolic pressure. Ischemic cardiomyopathy with acute systolic heart failure, ejection fraction of 30%, anterolateral akinesis.In-stent restenosis of the mid proximal left anterior descending artery, 95% stenosis. Underwent successful stent placed at the mid left anterior descending artery and successful angioplasty with noncompliance balloon of the proximal segment with excellent angiographic results. The patient will be continued on diuretic therapy. We will pull back to oral diuretic, bumetanide 1 mg daily and spironolactone 25 mg daily. We will also recommend a low-dose Entresto if the patient can tolerate. Aspirin and Brilinta will be continued and dual antibiotic drug therapy. The patient's heart failure is well compensated, 90 days after revascularization if the ejection fraction remains 30% may require ICD implantation since the ejection fraction is quite low and extensive anterolateral apical akinesis. We will optimize heart failure management next 1-2 days before discharging home. 03/17/2025: Patient was seen and examined at bedside. He reports no chest pain or pressure episodes. However he reports he is still having some difficulty sleeping due to shortness of breath. He remains on 6 L NC saturating 93%, possibly due to bilateral pleural effusion. His blood pressure is soft, last reading 112/63 pulse 85. Will hold off on Entresto today due to soft blood pressure. Continue current management with aspirin, ticagrelor, atorvastatin, Bumex 1 mg daily orally, metoprolol succinate 25 mg daily, spironolactone. Recommended to repeat CXR to assess pleural effusions. 03/18/2025: Patient was seen and examined at bedside. No overnight event. He reports his breathing is good and no chest pain or pressure. CXR yesterday showed significant improvement in his bilateral pleural effusions. He was started on Entresto 1/2 tab BID. BP on the soft today 116/66, HR 77. Recommended to discharge him today on GDMT, aspirin, ticagrelor and atorvastatin. Can lower Bumex dose if BP is concerning. Follow up with Dr. Terry in 1 week. Exam Vital Signs Temp Pulse Resp BP Pulse Ox O2 Del Method O2 Flow Rate 97.4 F 77 18 116/66 96 Room Air 5 03/18/25 12:00 03/18/25 12:00 03/18/25 12:00 03/18/25 12:00 03/18/25 12:00 03/18/25 12:00 03/18/25 04:00 Narrative Exam Gen: Well-developed and well-nourished elderly male. HEENT: NCAT, PERRLA, EOMI, MMM, anicteric conjunctivae. CVS: normal S1 and S2. RRR. No M/R/G. Resp: clear B/L. No rhonchi, rales, crackles or wheezing. Abd: soft, non-tender, non-distended. BS+ in all 4 quadrants. MSK: Good ROM in BUE & BLE. Trace edema BLE. Neuro: CN II-XII grossly intact. Strength 5/5 in BUE & BLE. Alert and oriented x3. Psych: appropriate mood and affect. Objective Labs 03/17/25 05:42 03/17/25 05:42 Quality Measures Quality Measures VTE prophylaxis Advance care planning discussed with:: patient Assessment & Plan Assessment Current Active Medications: Generic Name Dose Route Start Last Admin Trade Name Freq PRN Reason Stop Dose Admin Acetaminophen 650 mg 03/14/25 22:08 Acetaminophen 325 Mg Tablet PO 04/13/25 22:07 Q6H PRN PAIN OR FEVER > 101 Aspirin 81 mg 03/15/25 09:00 03/18/25 08:06 Aspirin Ec 81 Mg Tabec PO 04/14/25 08:59 81 mg QDAY MONTSE Administration Atorvastatin Calcium 80 mg 03/14/25 23:05 03/17/25 20:10 Atorvastatin Calcium 20 Mg Tablet PO 04/13/25 23:04 80 mg HS MONTSE Administration Bumetanide 1 mg 03/17/25 09:00 03/18/25 08:07 Bumetanide 0.5 Mg Tablet PO 04/16/25 08:59 1 mg QDAY MONTSE Administration Melatonin 3 mg 03/16/25 23:40 03/17/25 20:10 Melatonin 3 Mg Tablet PO 04/15/25 23:39 3 mg HS MONTSE Administration Metoprolol Succinate 25 mg 03/16/25 09:00 03/18/25 08:07 Metoprolol Succinate Xl 25 Mg Tabcr PO 04/15/25 08:59 25 mg QDAY MONTSE Administration Ondansetron HCl 4 mg 03/14/25 22:08 Ondansetron Inj 2 Mg/Ml Inj 2 Ml IVP 04/13/25 22:07 Q6H PRN NAUSEA OR VOMITING Protocol Pantoprazole Sodium 40 mg 03/15/25 09:00 03/18/25 08:06 Pantoprazole 40 Mg Tablet PO 04/14/25 08:59 40 mg QDAY MONTSE Administration Sacubitril/Valsartan 0.5 tab 03/17/25 17:00 03/18/25 08:07 Sacubitril 24 Mg/Valsartan 26 Mg Tablet PO 04/16/25 16:59 Not Given BID MONTSE Spironolactone 25 mg 03/17/25 09:00 03/18/25 08:07 Spironolactone 25 Mg Tablet PO 04/16/25 08:59 25 mg QDAY MONTSE Administration Ticagrelor 90 mg 03/16/25 09:00 03/18/25 08:07 Ticagrelor 90 Mg Tablet PO 04/15/25 08:59 90 mg BID MONTSE Administration Vitamin B Complex/Vit C/Folic Acid 1 tab 03/17/25 09:00 03/18/25 08:06 Vit B12/Vit C/Fa (Nephrovite) Tablet PO 04/16/25 08:59 1 tab QDAY MONTSE Administration Zolpidem Tartrate 2.5 mg 03/17/25 10:01 Zolpidem 5 Mg Tablet PO 04/16/25 10:00 HS PRN INSOMNIA Plan Patient is a 69 years old male with past medical history of CAD s/p PCI, hypertension, hyperlipidemia, prediabes presented to the ED due to chest pain and shortness of breath after walking yesterday evening, labs showed elevated troponin I and EKG showed ST segment depressions, he was admitted for further management and cardiology was consulted. #NSTEMI s/p PCI. #CAD s/p PCI. #Previous coronary multivessel stent placement. #HFrEF acute exacerbation with pleural effusions, improved. #HFrEF with EF 30-35% NYHA class II. #Hx of hyperlipidemia. #Bilateral pleural effusions, improved. #Hx of hypertension. Chest CTA showed [id number] CHF, moderate to large right pleural effusion, moderate left pleural effusion. Troponin I on admission 6.889, downtrending, last reading 4.907. BNP 417. EKG showed ST segment depressions in II, V5-V6. The patient came to the hospital with classic presentation of recent shortness of breath congestive heart failure with ACS NSTEMI symptoms also severe worsening of shortness of breath acutely decompensated congestive heart failure. Since the patient is significant troponin elevation we will go ahead and plan on doing coronary angiogram right and left heart cardiac catheterization possible later tomorrow afternoon or Thursday depending on the patient's ability to lay flat. The patient has no history of CAD multivessel stent placement between 2000 and 2004 but not recent came to the hospital severe shortness of breath bilateral pleural effusions as well as clinical acute decompensated congestive heart failure BNP elevation and ST depression precordial leads possible ischemic cardiomyopathy echo showed ejection fraction 35% with anteroseptal apical akinesis possible recent myocardial infarction versus old anterolateral microinfarction. Patient will recommend a right and left heart cardiac catheterization coronary angiogram and possible PCI if indicated we will schedule patient for tomorrow afternoon probably Thursday if does not improve that well especially patient is quite orthopneic currently sitting upright. Echo from 03/14/2025 showed Mildly dilated left ventricular with ischemic cardiomyopathy anteroseptal apical akinesis with moderate to severe global hypokinesis left ventricular ejection fraction 30 to 35%. Plan: - continue aspirin, atorvastatin, Brilinta 90 mg BID, metoprolol succinate 25 mg daily, spironolactone 25 mg daily, Bumex 1 mg PO QD and Entresto 1/2 tab BID. - keep monitoring electrolytes. - strict I&O and daily weights. - fluid restriction 1500cc/day. - low sodium diet. Management of other problems as per primary team. Plan of care discussed with attending Dr. Terry. Marcus Morillo MD, PGY 2. Disclaimer: This note was dictated by speech recognition. Minor errors in treating machine operator may be present due to voice recognition software.
--- NOTE | 2025-03-18 13:37 | PD.HHDS ---
Planned Discharge Date 03/18/25 DS: Providers Provider Date of admission: 03/14/25 22:03 Primary care physician: Duy Olson Admitting Provider: Dalton Holliday MD Attending Provider on Admission: Payton Barroso DO Consults: 03/15/25 09:32 Consult to Cardiology Stat Comment: Consulting Provider: Bert Terry Attending Provider on DC: Ricky Soler MD Discharging Provider: Ricky Soler MD Diagnosis Problem List Completed Was Problem List Reviewed/Reconciled?: Yes Hospital Course - Hospitalist Hospital Course Hospital course: Patient is a 69 years old male with past medical history of hypertension, hyperlipidemia, prediabetes who presented to the ED with complaint of shortness of breath and pressure-like sensation in the chest that developed after returning from an evening walk. In the ED, he was found to have elevated troponin, EKG showed ST depression in lead to 3 and aVF. He was then admitted for management of ACS, NSTEMI type I. 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 Patient underwent successful stent placement at the mid left anterior descending artery and successful angioplasty. While in the hospital, he has been started on Bumex, spironolactone, sacubitril/valsartan, aspirin, ticagrelor, metoprolol and atorvastatin. Patient has been able to tolerate the medications. At bedside today, patient states she is feeling well and does not have any complaints. He denied chest pain, shortness of breath, palpitations or any other symptoms. Vital signs have been stable, saturating well on room air. Lab results are stable as well including kidney function. Discussed with cardiology, agreed patient being safe for discharge on oral medication. We will discharge patient home on aspirin, Brilinta, atorvastatin. We will also add spironolactone 25 mg daily, half tablet sacubitril/valsartan twice daily, metoprolol 25 daily. Patient is recommended to follow-up with his PCP and cardiology in 1 to 2 weeks of discharge. Time Spent with Patient Time attestation: Total time spent providing and/or coordinating discharge services: Time spent: Less than 30 minutes Discharge Results Labs Diagrams: 03/17/25 05:42 03/17/25 05:42 Exam Vital Signs Temp Pulse Resp BP Pulse Ox O2 Del Method O2 Flow Rate 97.4 F 77 18 116/66 96 Room Air 5 03/18/25 12:00 03/18/25 12:00 03/18/25 12:00 03/18/25 12:00 03/18/25 12:00 03/18/25 12:00 03/18/25 04:00 Discharge Plan Plan Patient Disposition: HOME (Self Care) Patient condition on transfer: Stable Care Plan Goals: Please take Entresto 24-26mg 1/2 a tablet twice a day by mouth Please take bumetanide 0.5 mg daily Please take metoprolol succinate 25 mg daily Please take spironolactone 25 mg daily Please continue aspirin and start Brilinta 90 mg daily Please stop taking valsartan Please follow-up with your PCP and cardiology in 1 to 2 weeks of discharge. Prescriptions/Referrals Prescriptions/Med Rec: New Entresto 24-26 mg Tablet 0.5 tab PO BID 30 Days Qty: 30 0RF bumetanide 0.5 mg Tablet 0.5 mg PO QDAY 30 Days Qty: 30 0RF metoprolol succinate 25 mg Tablet Extended Release 24 Hr 25 mg PO QDAY 30 Days Qty: 30 0RF spironolactone 25 mg Tablet 25 mg PO QDAY 30 Days Qty: 30 0RF ticagrelor [Brilinta] 90 mg Tablet 90 mg PO BID 30 Days Qty: 60 0RF Continued atorvastatin 80 mg Tablet 80 mg PO QAM omeprazole 20 mg Tablet,Delayed Release (Dr/Ec) 20 mg PO QDAY Jardiance 10 mg tablet 10 mg PO QDAY Patient Comments: take 1 tablet by mouth daily every morning pregabalin 75 mg capsule 75 mg PO QDAY Patient Comments: take 1 capsule by mouth twice a day aspirin 81 mg tablet,delayed release (DR/EC) 81 mg PO QDAY Patient Comments: take 1 tablet by mouth once daily albuterol sulfate 90 mcg/actuation HFA aerosol inhaler 2 puff INHALATION Q6HR PRN (Reason: shortness of breath or wheezing) Patient Comments: inhale 2 puffs by mouth every 6 hours if needed for wheezing or cough calcium carbonate-vitamin D3 [Oyster Shell Calcium-Vit D3] 500 mg-5 mcg (200 unit) tablet 1 tab PO QDAY Patient Comments: take 1 tablet by mouth twice a day Discontinued valsartan 80 mg tablet 80 mg PO QDAY Patient Comments: take 2 tablets by mouth once daily Referrals: Duy Olson [Primary Care Provider] - Patient/Caregiver Discharge Instructions Discharge Activity: activity as tolerated Education Materials: Coronary Stents, Coronary Angioplasty Stenting Dc, Preventing Surgical Site Infections, Cardiac Cath Transradial Print Language: Nauruan Activity Restrictions/Additional Instructions: Please call to Schedule a follow up appointment with Dr. Terry, (Digital Marketing Specialist), to be seen in his office within one week upon discharge Address: [address] [place] [address]. Please call to schedule a follow up appointment with your primary care doctor 1-2 weeks after discharge so he/she can make further recommendations about your overall health condition. DO NOT drive or operate any motor vehicle, heavy equipment, or machinery with in 24 hours of procedure. DO NOT perform any activity that requires you to be fully alert with in 24 hours of procedure. DO NOT sign any documentation with in 24 hours of your procedure that requires a full understanding of what you are signing for. Do not perform any strenuous physical activity in the next 5 days. Do not bend or twist your wrist for the next 3 days. Do no lift anything that weights equal or over 5 pounds with your right Arm/Hand within the next 3 days. Perform light activity only with your right Hand/Arm for the next 3 days. Drink plenty of fluids, especially water, if not contraindicated by your doctor, to excrete an contrast from your procedure Keep your blood pressure under control. If you take blood pressure medication, continue to take it as prescribed, if not contraindicated by your doctor, doing so; helps to prevent post-complications such as bleeding. Take your new/previous medication as directed by the doctor. If there is no changes, continue to take medication at your usual time. After 3 days, start increasing the level of physical activity with your Hand/Arm gradually in the following 5 days. Look out for signs of infection such as tenderness, redness, or drainage to your right wrist. If any, report them to your primary care doctor immediately. You will go home with your right wrist covered by two different dressings, a clear dressing and a Coban wrap. The Coban wrap (Color Dressing on Top) must be removed in 24 hours after it was placed. The clear dressing (Dressing that is attached to your skin) Must be removed in 48 hours after it was placed. If you decide to shower or to take a bath, NOT RECOMMENDED IN THE FIRST 24 HOURS AFTER THE PROCEDURE; please keep dressing clean and dry by covering it. Or, if you prefer, take a sponge bath instead. After removing your dressing, you can gently clean your surgical site with soap and water and pad dry it. DO NOT rub site to prevent complication such as bleeding. DO NOT apply any lotions, creams, or powders on the surgical site until your skin completely heals (5 days or more). Should you experience any type of complications such as pain, change in color, change in temperature, a bruise that increases in size and color, a lump (Hard or soft) that develops and increases in size, numbness, or loss of sensation in your Right arm/Wrist, Chest pain, or shortness of breath; PLEASE GO TO THE NEAREST EMERGENCY ROOM IMMEDIATELY. Should you have any other questions or concerns on regards today?s procedure; feel free to contact us to [employer] . Please call to schedule a follow up appointment with your primary care doctor 1-2 weeks after discharge so he/she can make further recommendations about your overall health condition. It is important to follow a heart healthy diet. Avoid saturated fat foods and food and drinks with added sugar. Eat a well-balanced diet with plenty of fresh fruits, vegetables and whole grains if not contraindicated by your primary care provider. Choose water to hydrate yourself over any other type of drinks. Talk to your primary doctor for further advice for a diet that fits your nutritional body requirements and for an adequate exercise program to keep and improve your overall health condition. ALWAYS FOLLOW/CONSIDER YOUR PRIMARY CARE DOCTOR'S MEDICAL ADVICE BEFORE MAKING ANY CHANGES TO YOUR DIET OR LEVEL OF ACTIVITY. Should you have any other questions or concerns on regards today?s procedure; feel free to contact us to [employer] Stand Alone Forms: Stephanie Award Info., Patient Portal Info Letter Discharge Order Discharge Orders: Discharge (Routine); Ordered 03/18/25 Ordered By: Ricky Soler Quality Discharge Quality Measures VTE prophylaxis
--- NOTE | 2025-03-18 14:39 | PC.SS ---
Patient inquired about needing CPAP at discharge. Upon review of chart, patient was found to be on room air. Previous SS notes indicated patient may need oxygen. SS informed TONYA Ascencio if patient needs CPAP machine he would need to contact PCP.
== END 2025-03-18 14:40 | disposition home or self-care (01) | DRG 321 ==
LOC: SERX 21:20 → SERHOLD 22:23 → S2NX 03-15 16:05
PROVIDERS: Internal Medicine Cardiovascular Disease; Nurse Practitioner Family; Student in an Organized Health Care Education/Training Program; Admitting Provider Student in an Organized Health Care Education/Training Program; Emergency Provider Emergency Medicine; PCP Family Medicine; Visit Provider Internal Medicine
PROC: 4A023N8 Measurement of Cardiac Sampling and Pressure, Bilateral, Percutaneous Approach (ICD-10-PCS; principal; 2025-03-16 13:00)
DX: T82.855A Stenosis of coronary artery stent, initial encounter (principal); I21.4 Non-ST elevation (NSTEMI) myocardial infarction; I50.23 Acute on chronic systolic (congestive) heart failure; J96.01 Acute respiratory failure with hypoxia; I24.9 Acute ischemic heart disease, unspecified; E78.5 Hyperlipidemia, unspecified; I11.0 Hypertensive heart disease with heart failure; I27.20 Pulmonary hypertension, unspecified; I25.10 Atherosclerotic heart disease of native coronary artery without angina pectoris; I25.5 Ischemic cardiomyopathy; K21.9 Gastro-esophageal reflux disease without esophagitis; Z87.891 Personal history of nicotine dependence; Z79.82 Long term (current) use of aspirin; K80.20 Calculus of gallbladder without cholecystitis without obstruction; I25.2 Old myocardial infarction; Y83.1 Surgical operation with implant of artificial internal device as the cause of abnormal reaction of the patient, or of later complication, without mention of misadventure at the time of the procedure; I07.1 Rheumatic tricuspid insufficiency; Z95.5 Presence of coronary angioplasty implant and graft; Z79.02 Long term (current) use of antithrombotics/antiplatelets; Z79.899 Other long term (current) drug therapy
CPT/HCPCS: 36415; 71045; 71046; 71275; 80053; 80061; 81001; 83036; 83735; 83880; 84100; 84443; 84484; 85025; 85347; 85610; 85730; 87811; 93005; 93306; 94640; 96374; 99152; 99153; 99285; A4649; A9270; C1725; C1769; C1874; C1887; C1894; J0171; J0461; J1100; J1643; J1644; J1756; J1938; J2250; J2310; J2371; J3010; J3490; J7040; Q9967; J2305